=== PATIENT | female | born 1940 | race Caucasian/White ===

== ENCOUNTER 2024-09-27 07:55 | Outpatient (RCR) | payer MEDICARE, BC, SELFPAY ==
[2024-09-27 08:55] LABS: Basophils # (Auto) 0.1 Thou/mm3 (0.0-0.2); Basophils % (Auto) 3 % (0-2.5); Eosinophils # (Auto) 0.2 Thou/mm3 (0.0-0.5); Eosinophils % (Auto) 7 % (0-10); Hemoglobin 9.6 g/dL (12.0-16.0); Immature Granulocytes % (Auto) 0 % (0-0); Immature Granulocytes Auto 0.01 Thou/mm3 (0.00-0.00); Lymphocytes # (Auto) 0.5 Thou/mm3 (1.0-4.8); Lymphocytes % (Auto) 16 % (10-50); Mean Corpuscular Hemoglobin 25.3 pg (25.0-35.0); Mean Corpuscular Volume 82 fL (80-100); Monocytes # (Auto) 0.3 Thou/mm3 (0.0-0.8); Monocytes % (Auto) 9 % (0-12); Neutrophils # (Auto) 1.9 Thou/mm3 (1.8-7.7); Neutrophils % (Auto) 65 % (37-80); Nucleated Red Blood Cell % 0 /100 WBC (0); Platelet Count 208 Thou/mm3 (140-440); Red Blood Count 3.79 Miln/mm3 (4.00-5.20)
[2024-09-27 09:14] LABS: Alanine Aminotransferase 10 U/L (10-49); Albumin, Serum 4.4 gm/dL (3.4-4.8); Albumin/Globulin Ratio 1.9 (1.2-2.2); Alkaline Phosphatase 68 U/L (46-116); Anion Gap 6 (7-16); Aspartate Amino Transferase 22 U/L (0-34); BUN/Creatinine Ratio 20 Ratio (12-20); Bilirubin,Total 0.6 mg/dL (0.3-1.2); Blood Urea Nitrogen 14 mg/dL (9-23); Calcium 9.1 mg/dL (8.3-10.6); Calcium (Corrected) 9.1 mg/dL (8.5-10.1); Carbon Dioxide 25.3 mMol/L (20.0-31.0); Chloride 103 mMol/L (98-107); Creatinine (Component) 0.7 mg/dL (0.6-1.3); Globulin 2.3 gm/dL (2.3-3.5); Glucose 90 mg/dL (74-106); Osmolality,Calculated 268 (275-295); Potassium 4.3 mMol/L (3.4-5.1); Sodium 134 mMol/L (136-145); Total Protein 6.7 gm/dL (5.7-8.2); eGFR > 60 See Note
[2024-10-08 11:17] LABS: Abnormal protein band 1 0.6 g/dL (NONE DETECTED); Albumin 3.8 g/dL (3.8-4.8); Alpha-1-Globulin 0.3 g/dL (0.2-0.3); Alpha-2-Globulin 0.7 g/dL (0.5-0.9); Beta-1-Globulin 0.5 g/dL (0.4-0.6); Beta-2-globulin 0.2 g/dL (0.2-0.5); Gamma Globulin 0.9 g/dL (0.8-1.7); Immunoglobulin A 60 mg/dL (70-320); Immunoglobulin G 1064 mg/dL (600-1540); Kappa Light Chain, Free 100.1 mg/L (3.3-19.4); Lambda Light Chain, Free 14.3 mg/L (5.7-26.3)
[2024-10-11 06:49] LABS: Beta 2 Microglobulin 2.64 mg/L (< OR = 2.51); Immunoglobulin M 13 mg/dL (50-300); Protein, total, serum 6.4 g/dL (6.1-8.1)
== END 2024-10-02 23:59 | disposition home or self-care (01) ==
LOC: SCTC 07:55
PROVIDERS: PCP Family Medicine; Referring Provider Family Medicine; Visit Provider Internal Medicine Hematology & Oncology
DX: Z51.0 Encounter for antineoplastic radiation therapy (principal); Z51.11 Encounter for antineoplastic chemotherapy; C90.00 Multiple myeloma not having achieved remission; G62.9 Polyneuropathy, unspecified; G89.3 Neoplasm related pain (acute) (chronic)
CPT/HCPCS: 36415; 77300; 77301; 77336; 77338; 77385; 80053; 82232; 82784; 83521; 84155; 84165; 85025; 86334; 96372; 96401; 99212; A4216; J9041; G0463

== ENCOUNTER 2024-10-28 09:08 | Outpatient (RCR) | payer MEDICARE, BC, SELFPAY ==
[2024-10-04 09:12] LABS: Basophils # (Auto) 0.1 Thou/mm3 (0.0-0.2); Basophils % (Auto) 2 % (0-2.5); Eosinophils # (Auto) 0.1 Thou/mm3 (0.0-0.5); Eosinophils % (Auto) 2 % (0-10); Hemoglobin 9.9 g/dL (12.0-16.0); Immature Granulocytes % (Auto) 0 % (0-0); Immature Granulocytes Auto 0.02 Thou/mm3 (0.00-0.00); Lymphocytes # (Auto) 0.5 Thou/mm3 (1.0-4.8); Lymphocytes % (Auto) 12 % (10-50); Mean Corpuscular HGB Conc 30.9 g/dl (31.0-37.0); Mean Corpuscular Hemoglobin 25.3 pg (25.0-35.0); Mean Corpuscular Volume 82 fL (80-100); Monocytes # (Auto) 0.3 Thou/mm3 (0.0-0.8); Monocytes % (Auto) 7 % (0-12); Neutrophils # (Auto) 3.5 Thou/mm3 (1.8-7.7); Neutrophils % (Auto) 78 % (37-80); Nucleated Red Blood Cell % 0 /100 WBC (0); Platelet Count 247 Thou/mm3 (140-440); RDW Standard Deviation 48.1 fL (36.4-46.3); Red Blood Count 3.92 Miln/mm3 (4.00-5.20); White Blood Count 4.5 Thou/mm3 (3.6-11.0)
[2024-10-04 09:31] LABS: Alanine Aminotransferase 10 U/L (10-49); Albumin, Serum 4.4 gm/dL (3.4-4.8); Albumin/Globulin Ratio 1.6 (1.2-2.2); Alkaline Phosphatase 68 U/L (46-116); Anion Gap 5 (7-16); Aspartate Amino Transferase 24 U/L (0-34); BUN/Creatinine Ratio 19 Ratio (12-20); Bilirubin,Total 0.5 mg/dL (0.3-1.2); Blood Urea Nitrogen 13 mg/dL (9-23); Calcium 9.6 mg/dL (8.3-10.6); Calcium (Corrected) 9.6 mg/dL (8.5-10.1); Carbon Dioxide 27.3 mMol/L (20.0-31.0); Chloride 100 mMol/L (98-107); Creatinine (Component) 0.7 mg/dL (0.6-1.3); Globulin 2.7 gm/dL (2.3-3.5); Glucose 96 mg/dL (74-106); Osmolality,Calculated 264 (275-295); Potassium 4.4 mMol/L (3.4-5.1); Sodium 132 mMol/L (136-145); Total Protein 7.1 gm/dL (5.7-8.2); eGFR > 60 See Note
[2024-10-18 10:54] LABS: Basophils % (Auto) 1 % (0-2.5); Eosinophils % (Auto) 0 % (0-10); Hematocrit 31.1 % (36.0-46.0); Hemoglobin 9.5 g/dL (12.0-16.0); Immature Granulocytes % (Auto) 1 % (0-0); Immature Granulocytes Auto 0.03 Thou/mm3 (0.00-0.00); Lymphocytes # (Auto) 0.4 Thou/mm3 (1.0-4.8); Lymphocytes % (Auto) 6 % (10-50); Mean Corpuscular HGB Conc 30.5 g/dl (31.0-37.0); Mean Corpuscular Hemoglobin 24.5 pg (25.0-35.0); Mean Corpuscular Volume 80 fL (80-100); Monocytes # (Auto) 0.1 Thou/mm3 (0.0-0.8); Monocytes % (Auto) 1 % (0-12); Neutrophils # (Auto) 5.1 Thou/mm3 (1.8-7.7); Neutrophils % (Auto) 91 % (37-80); Nucleated Red Blood Cell % 0 /100 WBC (0); Platelet Count 437 Thou/mm3 (140-440); RDW Standard Deviation 46.2 fL (36.4-46.3); Red Blood Count 3.88 Miln/mm3 (4.00-5.20); White Blood Count 5.6 Thou/mm3 (3.6-11.0)
[2024-10-18 11:08] LABS: Alanine Aminotransferase 10 U/L (10-49); Albumin, Serum 4.4 gm/dL (3.4-4.8); Albumin/Globulin Ratio 1.8 (1.2-2.2); Alkaline Phosphatase 58 U/L (46-116); Anion Gap 8 (7-16); Aspartate Amino Transferase 25 U/L (0-34); BUN/Creatinine Ratio 14 Ratio (12-20); Bilirubin,Total 0.4 mg/dL (0.3-1.2); Blood Urea Nitrogen 10 mg/dL (9-23); Calcium 9.5 mg/dL (8.3-10.6); Calcium (Corrected) 9.5 mg/dL (8.5-10.1); Carbon Dioxide 25.4 mMol/L (20.0-31.0); Chloride 98 mMol/L (98-107); Creatinine (Component) 0.7 mg/dL (0.6-1.3); Globulin 2.5 gm/dL (2.3-3.5); Glucose 109 mg/dL (74-106); Osmolality,Calculated 262 (275-295); Potassium 4.1 mMol/L (3.4-5.1); Sodium 131 mMol/L (136-145); Total Protein 6.9 gm/dL (5.7-8.2); eGFR > 60 See Note
[2024-10-20 22:08] LABS: Abnormal protein band 1 0.5 g/dL (NONE DETECTED); Albumin 3.9 g/dL (3.8-4.8); Alpha-1-Globulin 0.3 g/dL (0.2-0.3); Alpha-2-Globulin 0.7 g/dL (0.5-0.9); Beta-1-Globulin 0.5 g/dL (0.4-0.6); Beta-2-globulin 0.2 g/dL (0.2-0.5); Gamma Globulin 0.9 g/dL (0.8-1.7)
[2024-10-21 06:27] LABS: Protein, total, serum 6.6 g/dL (6.1-8.1)
[2024-10-25 09:04] LABS: Basophils % (Auto) 1 % (0-2.5); Eosinophils # (Auto) 0.1 Thou/mm3 (0.0-0.5); Eosinophils % (Auto) 3 % (0-10); Hematocrit 30.5 % (36.0-46.0); Hemoglobin 9.5 g/dL (12.0-16.0); Immature Granulocytes % (Auto) 1 % (0-0); Immature Granulocytes Auto 0.02 Thou/mm3 (0.00-0.00); Lymphocytes # (Auto) 0.4 Thou/mm3 (1.0-4.8); Lymphocytes % (Auto) 10 % (10-50); Mean Corpuscular HGB Conc 31.1 g/dl (31.0-37.0); Mean Corpuscular Hemoglobin 24.8 pg (25.0-35.0); Mean Corpuscular Volume 80 fL (80-100); Monocytes # (Auto) 0.2 Thou/mm3 (0.0-0.8); Monocytes % (Auto) 5 % (0-12); Neutrophils # (Auto) 3.1 Thou/mm3 (1.8-7.7); Neutrophils % (Auto) 82 % (37-80); Nucleated Red Blood Cell % 0 /100 WBC (0); Platelet Count 261 Thou/mm3 (140-440); RDW Standard Deviation 45.4 fL (36.4-46.3); Red Blood Count 3.83 Miln/mm3 (4.00-5.20); White Blood Count 3.8 Thou/mm3 (3.6-11.0)
[2024-10-25 09:08] LABS: Alanine Aminotransferase 9 U/L (10-49); Albumin, Serum 4.3 gm/dL (3.4-4.8); Alkaline Phosphatase 50 U/L (46-116); Anion Gap 7 (7-16); Aspartate Amino Transferase 22 U/L (0-34); BUN/Creatinine Ratio 16 Ratio (12-20); Bilirubin,Total 0.4 mg/dL (0.3-1.2); Blood Urea Nitrogen 13 mg/dL (9-23); Calcium 9.2 mg/dL (8.3-10.6); Calcium (Corrected) 9.2 mg/dL (8.5-10.1); Carbon Dioxide 25.5 mMol/L (20.0-31.0); Chloride 103 mMol/L (98-107); Creatinine (Component) 0.8 mg/dL (0.6-1.3); Globulin 2.2 gm/dL (2.3-3.5); Glucose 94 mg/dL (74-106); Osmolality,Calculated 270 (275-295); Potassium 4.5 mMol/L (3.4-5.1); Sodium 135 mMol/L (136-145); Total Protein 6.5 gm/dL (5.7-8.2); eGFR > 60 See Note
[2024-11-02 03:06] LABS: Immunoglobulin G 1089 mg/dL (600-1540); Kappa Light Chain, Free 68.3 mg/L (3.3-19.4); Lambda Light Chain, Free 5.3 mg/L (5.7-26.3)
[2024-11-02 06:28] LABS: Immunoglobulin A 46 mg/dL (70-320); Immunoglobulin M 9 mg/dL (50-300); Kappa/Lambda, Free Ratio 12.89 (0.26-1.65)
== END 2024-11-02 23:59 | disposition home or self-care (01) ==
LOC: SCTC 09:08
PROVIDERS: PCP Family Medicine; Referring Provider Family Medicine; Visit Provider Internal Medicine Hematology & Oncology
DX: Z51.11 Encounter for antineoplastic chemotherapy (principal); C90.00 Multiple myeloma not having achieved remission
CPT/HCPCS: 36415; 80053; 82232; 82784; 83521; 84155; 84165; 85025; 86334; 96401; 99212; A4216; J9041; G0463

== ENCOUNTER → 2024-11-08 | Outpatient (CLI) | payer MEDICARE, BC, SELFPAY ==
[2024-11-08 14:53] LABS: Protein Total, Urine < 6 mg/dL (1-14)
[2024-11-08 14:54] LABS: Protein Total, 24 hr Urine 78 mg/24hr (<149); Protein Total, Urine Volume 1300 mL/24hr (600-1800)
== END | disposition home or self-care (01) ==
PROVIDERS: Referring Provider Internal Medicine Hematology & Oncology; Visit Provider Internal Medicine Hematology & Oncology
DX: C90.01 Multiple myeloma in remission (principal); C90.02 Multiple myeloma in relapse
CPT/HCPCS: 84156

== ENCOUNTER 2024-11-29 08:00 | Outpatient (RCR) | payer MEDICARE, BC, SELFPAY ==
[2024-11-08 10:09] LABS: Basophils % (Auto) 1 % (0-2.5); Eosinophils % (Auto) 1 % (0-10); Hematocrit 27.9 % (36.0-46.0); Immature Granulocytes % (Auto) 1 % (0-0); Immature Granulocytes Auto 0.03 Thou/mm3 (0.00-0.00); Lymphocytes # (Auto) 0.3 Thou/mm3 (1.0-4.8); Lymphocytes % (Auto) 6 % (10-50); Mean Corpuscular HGB Conc 31.2 g/dl (31.0-37.0); Mean Corpuscular Hemoglobin 24.3 pg (25.0-35.0); Mean Corpuscular Volume 78 fL (80-100); Monocytes # (Auto) 0.1 Thou/mm3 (0.0-0.8); Monocytes % (Auto) 3 % (0-12); Neutrophils # (Auto) 4.1 Thou/mm3 (1.8-7.7); Neutrophils % (Auto) 89 % (37-80); Nucleated Red Blood Cell % 0 /100 WBC (0); Platelet Count 394 Thou/mm3 (140-440); RDW Standard Deviation 45.6 fL (36.4-46.3); Red Blood Count 3.58 Miln/mm3 (4.00-5.20); White Blood Count 4.6 Thou/mm3 (3.6-11.0)
[2024-11-08 10:28] LABS: Hemoglobin 8.7 g/dL (12.0-16.0)
[2024-11-08 10:34] LABS: Alanine Aminotransferase 8 U/L (10-49); Albumin, Serum 4.3 gm/dL (3.4-4.8); Albumin/Globulin Ratio 1.8 (1.2-2.2); Alkaline Phosphatase 60 U/L (46-116); Anion Gap 7 (7-16); Aspartate Amino Transferase 25 U/L (0-34); BUN/Creatinine Ratio 16 Ratio (12-20); Bilirubin,Total 0.4 mg/dL (0.3-1.2); Blood Urea Nitrogen 13 mg/dL (9-23); Calcium 9.2 mg/dL (8.3-10.6); Calcium (Corrected) 9.2 mg/dL (8.5-10.1); Carbon Dioxide 25.4 mMol/L (20.0-31.0); Chloride 99 mMol/L (98-107); Creatinine (Component) 0.8 mg/dL (0.6-1.3); Globulin 2.4 gm/dL (2.3-3.5); Glucose 101 mg/dL (74-106); Osmolality,Calculated 262 (275-295); Potassium 4.7 mMol/L (3.4-5.1); Sodium 131 mMol/L (136-145); Total Protein 6.7 gm/dL (5.7-8.2); eGFR > 60 See Note
--- NOTE | 2024-11-10 01:25 | CTCFLWUP_ITS ---
Patient: MAIA GUZMAN : 1940 Page 6 of 7 FOLLOW UP NOTE DATE OF SERVICE: 11/09/2024 NAME: MAIA GUZMAN ACCOUNT: [id number] : 1940 AGE: 84 INTERVAL HISTORY: Patient is complaining of inability to sleep after starting on dexamethasone. Patient is taking only 1 tablet 1 and unable to sleep and feel exhausted secondary to that. She is requesting to stop that . Otherwise she is doing well and want to continue her chemotherapy ONCOLOGY HISTORY: DIAGNOSIS: Multiple myeloma in remission [ICD10] C90.01 DATE OF DIAGNOSIS: 2014 STAGE/TNM: myeloma TREATMENT HISTORY: Care?Plan Start?Date Cycle Day Intent KYPROLIS?MAINT?#2 05/24/2015 1 28 Palliative KYPROLIS?20mg/m*2?MAINT 01/21/2017 1 28 Palliative KYPROLIS?MAINT 07/23/2017 1 28 Palliative KYPROLIS?MAINT?#2 07/22/2017 1 28 Palliative KYPROLIS?MAINT 01/13/2018 1 28 Definitive DARatumumab?Weekly?douglas 02/01/2021 1 7 Palliative DARatumumab?Every?2?weeks 04/30/2021 1 14 Palliative DARatumumab?q?2?weeks 04/30/2021 1 14 Palliative DARAtumumab?q?4?weeks 09/20/2021 1 28 Palliative DARAtumumab?every?4?weeks 04/22/2023 11 28 Palliative Elotuzumab?cy?1and2?and?3+ 03/15/2024 1 28 Palliative Bortezomib?1.3?mg/m*2?SQ,?Rx?Dex?40?mg?Weekly?-?Trnsp,?Salv 09/27/2024 1 21 Palliative VCd?dose?reduced?multiple?myeloma 11/08/2024 1 21 Palliative HISTORY OF PRESENT ILLNESS: Maia Guzman is a 84-year-old female with following history. 05/16/2014: MRI without contrast showed suspicious lesions for metastatic disease. 05/17/2014: MRI showed fracture of the vertebra with bilateral lower extremity weakness. 05/20/2014: she had T1-T5 fusion, T2 corpectomy, tumor resection, laminectomy and decompression at [facility]. Frozen sections showed myeloma. 05/23/2014: Bone marrow biopsy showed 34% plasma cells. FISH testing showed multiple chromosomal abno rmalities. 06/25/2014: Patient was started on cyclophosphamide, bortezomib and Decadron. 07/15/2014: Single fraction of palliative radiation therapy was delivered to spine from T12-L5 for 800 cGy. 08/08/2014-09/01/2014 the patient received 2 more cycles of cyclophosphamide and bortezomib. Followin g that Velcade was held due to worsening neuropathy. Since then patient has been on Kyprolis as well as Revlimid. 05/24/2015: Patient was started on Kyprolis here in [place]. Her last Kyprolis was given on 2017. 01/28/2018: Patient received last dose of Zometa. May 2018: Patient continued on maintenance Revlimid. 11/09/2020: PET CT scan was done at [facility]? 12/19/2020: Whole body MRI scans done at [facility]? 12/25/2020: IgG 917, kappa light chains 48.7. 02/01/2021: Patient is started on daratumumab, Pomalyst and steroids. 05/21/2021: [place] light chain 25.9, IgG 474. 09/18/2021: [place] light chain 32.6, IgG 464, 11/20/2021: PET/CT scan? 12/19/2021: Free kappa light chain 21.2, IgG 470. 03/18/2022: Free kappa light chain 23.9, IgG 419. 06/24/2022 IgG 450. Free kappa light chain 23.3. 09/16/2022: IgG 453, free kappa light chain 20.0 12/11/2022: Ms. Guzman had radiation therapy to the left frontal bone at [facility] for a PET scan documen ailin enlarging lesion. 12/18/2022: IgG 468, free kappa light chains 26.4. Beta-2 microglobulin 1.83. Immunofixation study r evealed 1 trace concentration band migrating in the gamma region. 03/18/2023: IgG 453 (600?1540), beta-2 microglobulin 2.0. 06/18/2023: IgG 509, kappa light chains 24.5. 2 microglobulin 1.92. Abnormal protein band 0.2. 09/17/2023: IgG 555, kappa light chains 26.6. 12/17/2023: IgG 618, kappa light chains 42. 01/19/2024: IgG 779, kappa light chains 47.8. 02/13/2024: PET/CT scan was done at [facility] 02/16/2024: IgG 840, kappa light chains 50.8. Abnormal protein band 0.4 OTHER MEDICAL HISTORY/CONDITIONS: FAMILY HISTORY: ?Clone Family Hx? 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 acyclovir - 400 mg Twice a Day 2. aspirin - 81 mg 1 tab Daily 3. Decadron - 4 mg 2 tab As directed 4. gabapentin - 300 mg 3 Capsule 3 capsules three times daily 5. lisinopril - 5 mg 1 tab Daily 6. Senokot - As directed 7. traMADol - 50 mg 1 tab q6?Palabra Meds? Medications Last Reconciled by Niecy Ramos MA on 11/09/2024 ALLERGIES: Compazine REVIEW OF SYSTEMS: A complete 14-point review of systems was performed and is negative except as noted in interval histo ry. PHYSICAL EXAMINATION:?CloneBlock PE? VITAL SIGNS: Temperature?98.7, B/P?117/70, Oxygen?Saturation?96% Weight?113.4?lbs (Change?since? 5:?2.4?lbs) PAIN: 0 - No pain ECOG Performance Status: 0 - Asymptomatic and fully active Conjunctive is white Neck is supple. No adenopathy in the neck, axillary and inguinal region. Chest clear to auscultation. No wheezes or rails audible. CVS rhythm regular. Abdomen is soft. No hepatosplenomegaly palpable. Extremities no clubbing or cyanosis. She does have trace edema. LABORATORY DATA: I have personally reviewed and interpreted each of the patient?s relevant lab tests, abnormal finding s are below: Date 11/08/24 ??WHITE?BLOOD?COUNT?(Thou/mm3) 4.6 ??RED?BLOOD?COUNT?(Miln/mm3) 3.58?L ??HEMOGLOBIN?(gm/dl) 8.7?L ??HEMATOCRIT?(%) 27.9?L ??PLATELET?COUNT?(Thou/mm3) 394 ??NEUTROPHILS?%,?AUTO?(%) 89?H ??LYMPH?%,?AUTO?(%) 6?L ??NEUTROPHILS,?AUTO?(Thou/mm3) 4.1 ASSESSMENT/PLAN: stage III IgG G kappa myeloma pain increased in ribs and worsening . Recent PET/CT scan done at [facility] showed progression of her myeloma as documented above. Progressed on daratumumab and Pomalyst well. However patient was not taking Pomalyst as recommended. She decided not to take Decadron. She also decided in the past not to take Zometa. S/p radiation therapy to the left frontal bone lesion which was enlarging on the PET scan. Patient r eceived radiation therapy at [facility]. Myeloma progressed on maintenance Revlimid. Progressed on daratumumab and Pomalyst Progressing on elotuzumab, Pomalyst and Decadron PET scan in [facility] is showing progression Started on velcade and dexamethasone and cyclophosphamide was added for the last cycle Patient is tolerating Velcade and cyclophosphamide but unable to sleep secondary to dexamethasone Radiation therapy completed and gabapentin doing adequate pain control. Patient says she does not ge t pain like before and feel better now As patient have lack of sleep secondary to dexamethasone I offered Ativan Patient do not want Ativan but would like to stop dexamethasone Will continue cyclophosphamide and Velcade as tolerated Will repeat imaging Patient would like to discuss it in 4 weeks after she has spoken to Dr. Montes at [facility] ORDERS: Myeloma panel labs to be drawn prior to next visit. RETURN TO CLINIC: 4 weeks BILLING AND COMPLIANCE: I reviewed external records from providers outside my specialty as summarized above. I spent a total of 50 minutes on this patient?s care on the day of their visit excluding time spent related to any bi lled procedures. This time includes time spent with the patient as well as time spent documenting in the medical record, reviewing patients records and tests, obtaining history, placing orders, communi cating with other healthcare professionals, counseling the patient, family or caregiver, and/or care coordination for the diagnoses above. Electronically Signed by: Stu Silveira MD T: 1:23 AM CC: Bhaskar?Myles,LEX PCP: Bhaskar Bueno Referring: Bueno, Jaisimaran K This document was completed utilizing speech recognition software. Grammatical errors, random word in sertions, pronoun errors, and incomplete sentences are an occasional consequence of this system due t o software limitations, ambient noise, and hardware issues. Any formal questions or concerns about th e content, text or information contained within the body of this dictation should be directly address ed to the provider for clarification.
[2024-11-11 19:46] LABS: Abnormal protein band 1 0.4 g/dL (NONE DETECTED); Alpha-1-Globulin 0.3 g/dL (0.2-0.3); Alpha-2-Globulin 0.7 g/dL (0.5-0.9); Beta-1-Globulin 0.5 g/dL (0.4-0.6); Beta-2-globulin 0.2 g/dL (0.2-0.5); Gamma Globulin 0.8 g/dL (0.8-1.7)
[2024-11-12 06:32] LABS: Protein, total, serum 6.4 g/dL (6.1-8.1)
[2024-11-12 08:49] LABS: Kappa Light Chain, Free 48.2 mg/L (3.3-19.4); Lambda Light Chain, Free 5.2 mg/L (5.7-26.3)
[2024-11-15 06:52] LABS: Beta 2 Microglobulin 2.31 mg/L (< OR = 2.51); Kappa/Lambda, Free Ratio 9.27 (0.26-1.65)
[2024-11-15 09:18] LABS: Basophils % (Auto) 1 % (0-2.5); Eosinophils # (Auto) 0.2 Thou/mm3 (0.0-0.5); Eosinophils % (Auto) 5 % (0-10); Hematocrit 28.3 % (36.0-46.0); Immature Granulocytes % (Auto) 1 % (0-0); Immature Granulocytes Auto 0.02 Thou/mm3 (0.00-0.00); Lymphocytes # (Auto) 0.6 Thou/mm3 (1.0-4.8); Lymphocytes % (Auto) 14 % (10-50); Mean Corpuscular HGB Conc 30.7 g/dl (31.0-37.0); Mean Corpuscular Hemoglobin 24.2 pg (25.0-35.0); Mean Corpuscular Volume 79 fL (80-100); Monocytes # (Auto) 0.5 Thou/mm3 (0.0-0.8); Monocytes % (Auto) 12 % (0-12); Neutrophils % (Auto) 69 % (37-80); Nucleated Red Blood Cell % 0 /100 WBC (0); Platelet Count 328 Thou/mm3 (140-440); Red Blood Count 3.59 Miln/mm3 (4.00-5.20); White Blood Count 4.3 Thou/mm3 (3.6-11.0)
[2024-11-15 09:35] LABS: Hemoglobin 8.7 g/dL (12.0-16.0)
[2024-11-15 09:43] LABS: Alanine Aminotransferase < 7 U/L (10-49); Albumin, Serum 4.5 gm/dL (3.4-4.8); Alkaline Phosphatase 66 U/L (46-116); Anion Gap 7 (7-16); Aspartate Amino Transferase 22 U/L (0-34); BUN/Creatinine Ratio 14 Ratio (12-20); Bilirubin,Total 0.4 mg/dL (0.3-1.2); Blood Urea Nitrogen 11 mg/dL (9-23); Chloride 100 mMol/L (98-107); Creatinine (Component) 0.8 mg/dL (0.6-1.3); Globulin 2.3 gm/dL (2.3-3.5); Glucose 85 mg/dL (74-106); Osmolality,Calculated 264 (275-295); Potassium 4.4 mMol/L (3.4-5.1); Sodium 133 mMol/L (136-145); Total Protein 6.8 gm/dL (5.7-8.2); eGFR > 60 See Note
[2024-11-29 08:47] LABS: Basophils % (Auto) 0 % (0-2.5); Eosinophils # (Auto) 0.1 Thou/mm3 (0.0-0.5); Eosinophils % (Auto) 2 % (0-10); Hematocrit 30.2 % (36.0-46.0); Hemoglobin 9.3 g/dL (12.0-16.0); Immature Granulocytes % (Auto) 0 % (0-0); Immature Granulocytes Auto 0.01 Thou/mm3 (0.00-0.00); Lymphocytes # (Auto) 0.3 Thou/mm3 (1.0-4.8); Lymphocytes % (Auto) 7 % (10-50); Mean Corpuscular HGB Conc 30.8 g/dl (31.0-37.0); Mean Corpuscular Hemoglobin 24.2 pg (25.0-35.0); Mean Corpuscular Volume 78 fL (80-100); Monocytes # (Auto) 0.1 Thou/mm3 (0.0-0.8); Monocytes % (Auto) 3 % (0-12); Neutrophils # (Auto) 4.3 Thou/mm3 (1.8-7.7); Neutrophils % (Auto) 88 % (37-80); Nucleated Red Blood Cell % 0 /100 WBC (0); Platelet Count 353 Thou/mm3 (140-440); RDW Standard Deviation 45.4 fL (36.4-46.3); Red Blood Count 3.85 Miln/mm3 (4.00-5.20); White Blood Count 4.9 Thou/mm3 (3.6-11.0)
[2024-11-29 09:04] LABS: Alanine Aminotransferase 17 U/L (10-49); Albumin, Serum 4.7 gm/dL (3.4-4.8); Alkaline Phosphatase 83 U/L (46-116); Anion Gap 8 (7-16); Aspartate Amino Transferase 26 U/L (0-34); BUN/Creatinine Ratio 18 Ratio (12-20); Bilirubin,Total 0.7 mg/dL (0.3-1.2); Blood Urea Nitrogen 14 mg/dL (9-23); Calcium 9.5 mg/dL (8.3-10.6); Calcium (Corrected) 9.5 mg/dL (8.5-10.1); Chloride 96 mMol/L (98-107); Creatinine (Component) 0.8 mg/dL (0.6-1.3); Globulin 2.3 gm/dL (2.3-3.5); Glucose 98 mg/dL (74-106); Osmolality,Calculated 261 (275-295); Potassium 4.7 mMol/L (3.4-5.1); Sodium 130 mMol/L (136-145); eGFR > 60 See Note
== END 2024-12-03 23:59 | disposition home or self-care (01) ==
LOC: SCTC 08:00
PROVIDERS: PCP Family Medicine; Referring Provider Family Medicine; Visit Provider Internal Medicine Hematology & Oncology
DX: Z51.11 Encounter for antineoplastic chemotherapy (principal); C90.00 Multiple myeloma not having achieved remission; Z92.3 Personal history of irradiation
CPT/HCPCS: 80053; 82232; 83521; 84155; 84165; 85025; 86334; 96367; 96401; 96413; 99212; A4216; J1453; J2405; J7040; J7050; J9041; J9075; G0463

== ENCOUNTER 2024-12-29 08:54 | Outpatient (RCR) | payer MEDICARE, BC, SELFPAY ==
[2024-12-06 09:50] LABS: Basophils % (Auto) 1 % (0-2.5); Eosinophils # (Auto) 0.1 Thou/mm3 (0.0-0.5); Eosinophils % (Auto) 3 % (0-10); Hematocrit 29.3 % (36.0-46.0); Immature Granulocytes % (Auto) 1 % (0-0); Immature Granulocytes Auto 0.02 Thou/mm3 (0.00-0.00); Lymphocytes # (Auto) 0.9 Thou/mm3 (1.0-4.8); Lymphocytes % (Auto) 22 % (10-50); Mean Corpuscular HGB Conc 30.7 g/dl (31.0-37.0); Mean Corpuscular Hemoglobin 24.3 pg (25.0-35.0); Mean Corpuscular Volume 79 fL (80-100); Monocytes # (Auto) 0.5 Thou/mm3 (0.0-0.8); Monocytes % (Auto) 11 % (0-12); Neutrophils # (Auto) 2.7 Thou/mm3 (1.8-7.7); Neutrophils % (Auto) 64 % (37-80); Nucleated Red Blood Cell % 0 /100 WBC (0); Platelet Count 308 Thou/mm3 (140-440); RDW Standard Deviation 46.3 fL (36.4-46.3); White Blood Count 4.3 Thou/mm3 (3.6-11.0)
[2024-12-06 10:08] LABS: Alanine Aminotransferase 10 U/L (10-49); Albumin, Serum 4.5 gm/dL (3.4-4.8); Albumin/Globulin Ratio 1.9 (1.2-2.2); Alkaline Phosphatase 65 U/L (46-116); Anion Gap 7 (7-16); Aspartate Amino Transferase 25 U/L (0-34); BUN/Creatinine Ratio 20 Ratio (12-20); Bilirubin,Total 0.5 mg/dL (0.3-1.2); Blood Urea Nitrogen 14 mg/dL (9-23); Calcium 9.4 mg/dL (8.3-10.6); Calcium (Corrected) 9.4 mg/dL (8.5-10.1); Carbon Dioxide 27.5 mMol/L (20.0-31.0); Chloride 101 mMol/L (98-107); Creatinine (Component) 0.7 mg/dL (0.6-1.3); Globulin 2.4 gm/dL (2.3-3.5); Glucose 83 mg/dL (74-106); Osmolality,Calculated 269 (275-295); Potassium 4.6 mMol/L (3.4-5.1); Sodium 135 mMol/L (136-145); Total Protein 6.9 gm/dL (5.7-8.2); eGFR > 60 See Note
--- NOTE | 2024-12-08 12:48 | CTCFLWUP_ITS ---
Patient: MAIA GUZMAN : 1940 Page 2 of 2 FOLLOW UP NOTE DATE OF SERVICE: 12/08/2024 NAME: MAIA GUZMAN ACCOUNT: [id number] : 1940 AGE: 84 INTERVAL HISTORY: Patient is seen by telephone appointment at her request. Patient says that she is tolerating treatment since decreasing the dose. She is scheduled for PET CT scan in [place] and she would like to get it at [place] as her PET scans can be compared to the older ones. Patient denies any nausea or vomiting. ONCOLOGY HISTORY: DIAGNOSIS: Multiple myeloma in remission [ICD10] C90.01 DATE OF DIAGNOSIS: 2014 STAGE/TNM: myeloma TREATMENT HISTORY: Care?Plan Start?Date Cycle Day Intent KYPROLIS?MAINT?#2 05/24/2015 1 28 Palliative KYPROLIS?20mg/m*2?MAINT 01/21/2017 1 28 Palliative KYPROLIS?MAINT 07/23/2017 1 28 Palliative KYPROLIS?MAINT?#2 07/22/2017 1 28 Palliative KYPROLIS?MAINT 01/13/2018 1 28 Definitive DARatumumab?Weekly?douglas 02/01/2021 1 7 Palliative DARatumumab?Every?2?weeks 04/30/2021 1 14 Palliative DARatumumab?q?2?weeks 04/30/2021 1 14 Palliative DARAtumumab?q?4?weeks 09/20/2021 1 28 Palliative DARAtumumab?every?4?weeks 04/22/2023 11 28 Palliative Elotuzumab?cy?1and2?and?3+ 03/15/2024 1 28 Palliative Bortezomib?1.3?mg/m*2?SQ,?Rx?Dex?40?mg?Weekly?-?Trnsp,?Salv 09/27/2024 1 21 Palliative VCd?dose?reduced?multiple?myeloma 11/08/2024 1 21 Palliative HISTORY OF PRESENT ILLNESS: Maia Guzman is a 84-year-old female with following history. 05/16/2014: MRI without contrast showed suspicious lesions for metastatic disease. 05/17/2014: MRI showed fracture of the vertebra with bilateral lower extremity weakness. 05/20/2014: she had T1-T5 fusion, T2 corpectomy, tumor resection, laminectomy and decompression at [place]. Frozen sections showed myeloma. 05/23/2014: Bone marrow biopsy showed 34% plasma cells. FISH testing showed multiple chromosomal abnormalities. 06/25/2014: Patient was started on cyclophosphamide, bortezomib and Decadron. 07/15/2014: Single fraction of palliative radiation therapy was delivered to spine from T12-L5 for 800 cGy. 08/08/2014-09/01/2014 the patient received 2 more cycles of cyclophosphamide and bortezomib. Following that Velcade was held due to worsening neuropathy. Since then patient has been on Kyprolis as well as Revlimid. 05/24/2015: Patient was started on Kyprolis here in [place]. Her last Kyprolis was given on 04/29/2018. 01/28/2018: Patient received last dose of Zometa. May 2018: Patient continued on maintenance Revlimid. 11/09/2020: PET CT scan was done at [place]? 12/19/2020: Whole body MRI scans done at [place]? 12/25/2020: IgG 917, kappa light chains 48.7. 02/01/2021: Patient is started on daratumumab, Pomalyst and steroids. 05/21/2021: [place] light chain 25.9, IgG 474. 09/18/2021: [place] light chain 32.6, IgG 464, 11/20/2021: PET/CT scan? 12/19/2021: Free kappa light chain 21.2, IgG 470. 03/18/2022: Free kappa light chain 23.9, IgG 419. 06/24/2022 IgG 450. Free kappa light chain 23.3. 09/16/2022: IgG 453, free kappa light chain 20.0 12/11/2022: Ms. Guzman had radiation therapy to the left frontal bone at [place] for a PET scan documented enlarging lesion. 12/18/2022: IgG 468, free kappa light chains 26.4. Beta-2 microglobulin 1.83. Immunofixation study revealed 1 trace concentration band migrating in the gamma region. 03/18/2023: IgG 453 (600?1540), beta-2 microglobulin 2.0. 06/18/2023: IgG 509, kappa light chains 24.5. 2 microglobulin 1.92. Abnormal protein band 0.2. 09/17/2023: IgG 555, kappa light chains 26.6. 12/17/2023: IgG 618, kappa light chains 42. 01/19/2024: IgG 779, kappa light chains 47.8. 02/13/2024: PET/CT scan was done at [place] 02/16/2024: IgG 840, kappa light chains 50.8. 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 acyclovir - 400 mg Twice a Day 2. aspirin - 81 mg 1 tab Daily 3. Decadron - 4 mg 2 tab As directed 4. gabapentin - 300 mg 3 Capsule 3 capsules three times daily 5. lisinopril - 5 mg 1 tab Daily 6. Senokot - As directed 7. traMADol - 50 mg 1 tab q6 Medications Last Reconciled by Niecy Ramos MA on 12/08/2024 ALLERGIES: Compazine REVIEW OF SYSTEMS: A complete 14-point review of systems was performed and is negative except as noted in interval history. PHYSICAL EXAMINATION: VITAL SIGNS: PAIN: 0 - No pain ECOG Performance Status: 1 - Symptomatic; ambulatory; restricted in strenuous activity LABORATORY DATA: I have personally reviewed and interpreted each of the patient?s relevant lab tests, abnormal findings are below: Date 12/06/24 ??WHITE?BLOOD?COUNT?(Thou/mm3) 4.3 ??RED?BLOOD?COUNT?(Miln/mm3) 3.70?L ??HEMOGLOBIN?(gm/dl) 9.0?L ??HEMATOCRIT?(%) 29.3?L ??PLATELET?COUNT?(Thou/mm3) 308 ??NEUTROPHILS?%,?AUTO?(%) 64 ??LYMPH?%,?AUTO?(%) 22 ??NEUTROPHILS,?AUTO?(Thou/mm3) 2.7 ASSESSMENT/PLAN: stage III IgG G kappa myeloma Pain is better controlled now. She says she have no new pain. Her chronic pain in the back is the only 1 and is well-controlled. Patient's kappa lambda chain have been decreasing Patient's M protein has also decreased Last PET/CT scan done at [place] showed progression of her myeloma as documented above. Patient at that time was changed therapy and since then has been doing well. S/p radiation therapy to the left frontal bone lesion which was enlarging on the PET scan. Patient received radiation therapy at [place]. Patient has progressed on Revlimid daratumumab Pomalyst elotuzumab patient is tolerating cyclophosphamide and Velcade and Decadron She likes to get only IV Decadron and not tablets Will continue the current therapy at half dose of cyclophosphamide Will follow on the PET CT scan Anemia Will do nutritional workup to rule out any nutritional causes of anemia CBC CMP serum amino pheresis SPEP iron studies B12 folic acid RETURN TO CLINIC: 6 to [address] scan results BILLING AND COMPLIANCE: I reviewed external records from providers outside my specialty as summarized above. I spent a total of 50 minutes on this patient?s care on the day of their visit excluding time spent related to any billed procedures. This time includes time spent with the patient as well as time spent documenting in the medical record, reviewing patients records and tests, obtaining history, placing orders, communicating with other healthcare professionals, counseling the patient, family or caregiver, and/or care coordination for the diagnoses above. Electronically Signed by: Stu Silveira MD T: 12:45 PM CC: Bhaskar?Myles,? PCP: Bhaskar Bueno Referring: Stu Silveira This document was completed utilizing speech recognition software. Grammatical errors, random word insertions, pronoun errors, and incomplete sentences are an occasional consequence of this system due to software limitations, ambient noise, and hardware issues. Any formal questions or concerns about the content, text or information contained within the body of this dictation should be directly addressed to the provider for clarification.
[2024-12-10 03:04] LABS: Abnormal protein band 1 0.4 g/dL (NONE DETECTED); Alpha-1-Globulin 0.3 g/dL (0.2-0.3); Alpha-2-Globulin 0.7 g/dL (0.5-0.9); Beta-1-Globulin 0.4 g/dL (0.4-0.6); Beta-2-globulin 0.2 g/dL (0.2-0.5); Gamma Globulin 0.7 g/dL (0.8-1.7)
[2024-12-10 06:46] LABS: Protein, total, serum 6.4 g/dL (6.1-8.1)
[2024-12-13 08:54] LABS: Basophils % (Auto) 1 % (0-2.5); Eosinophils # (Auto) 0.1 Thou/mm3 (0.0-0.5); Eosinophils % (Auto) 3 % (0-10); Hematocrit 28.6 % (36.0-46.0); Hemoglobin 8.9 g/dL (12.0-16.0); Immature Granulocytes % (Auto) 1 % (0-0); Immature Granulocytes Auto 0.03 Thou/mm3 (0.00-0.00); Lymphocytes # (Auto) 0.7 Thou/mm3 (1.0-4.8); Lymphocytes % (Auto) 18 % (10-50); Mean Corpuscular HGB Conc 31.1 g/dl (31.0-37.0); Mean Corpuscular Hemoglobin 24.3 pg (25.0-35.0); Mean Corpuscular Volume 78 fL (80-100); Monocytes # (Auto) 0.4 Thou/mm3 (0.0-0.8); Monocytes % (Auto) 10 % (0-12); Neutrophils # (Auto) 2.6 Thou/mm3 (1.8-7.7); Neutrophils % (Auto) 67 % (37-80); Nucleated Red Blood Cell % 0 /100 WBC (0); Platelet Count 234 Thou/mm3 (140-440); RDW Standard Deviation 45.6 fL (36.4-46.3); Red Blood Count 3.67 Miln/mm3 (4.00-5.20); White Blood Count 3.9 Thou/mm3 (3.6-11.0)
[2024-12-13 09:11] LABS: Alanine Aminotransferase 10 U/L (10-49); Albumin, Serum 4.3 gm/dL (3.4-4.8); Alkaline Phosphatase 71 U/L (46-116); Anion Gap 5 (7-16); Aspartate Amino Transferase 17 U/L (0-34); BUN/Creatinine Ratio 16 Ratio (12-20); Bilirubin,Total 0.5 mg/dL (0.3-1.2); Blood Urea Nitrogen 11 mg/dL (9-23); Calcium 8.6 mg/dL (8.3-10.6); Calcium (Corrected) 8.6 mg/dL (8.5-10.1); Carbon Dioxide 24.9 mMol/L (20.0-31.0); Chloride 102 mMol/L (98-107); Creatinine (Component) 0.7 mg/dL (0.6-1.3); Globulin 2.2 gm/dL (2.3-3.5); Glucose 83 mg/dL (74-106); Osmolality,Calculated 262 (275-295); Potassium 4.6 mMol/L (3.4-5.1); Sodium 132 mMol/L (136-145); Total Protein 6.5 gm/dL (5.7-8.2); eGFR > 60 See Note
[2024-12-13 09:25] LABS: Ferritin 9 ng/mL (7.3-270.7); Iron 26 mcg/dL (50-170); Percent Iron Saturation 6 % (20-55); Total Iron Binding Capacity 390 mcg/dL (250-425); Unsaturated Iron Binding 364 (225-295)
[2024-12-13 09:27] LABS: Folate 18.01 ng/mL (>5.38); Vitamin B12 323 pg/mL (211-911)
[2024-12-15 13:50] LABS: Immunoglobulin G 905 mg/dL (600-1540); Kappa Light Chain, Free 44.2 mg/L (3.3-19.4); Lambda Light Chain, Free 5.6 mg/L (5.7-26.3)
[2024-12-16 06:23] LABS: Beta 2 Microglobulin 2.14 mg/L (< OR = 2.51); Immunoglobulin A 34 mg/dL (70-320); Immunoglobulin M 7 mg/dL (50-300); Kappa/Lambda, Free Ratio 7.89 (0.26-1.65)
[2024-12-22 08:57] LABS: Basophils % (Auto) 1 % (0-2.5); Eosinophils # (Auto) 0.1 Thou/mm3 (0.0-0.5); Eosinophils % (Auto) 3 % (0-10); Hematocrit 27.4 % (36.0-46.0); Immature Granulocytes % (Auto) 0 % (0-0); Immature Granulocytes Auto 0.01 Thou/mm3 (0.00-0.00); Lymphocytes # (Auto) 0.7 Thou/mm3 (1.0-4.8); Lymphocytes % (Auto) 14 % (10-50); Mean Corpuscular HGB Conc 31.4 g/dl (31.0-37.0); Mean Corpuscular Hemoglobin 24.4 pg (25.0-35.0); Mean Corpuscular Volume 78 fL (80-100); Monocytes # (Auto) 0.5 Thou/mm3 (0.0-0.8); Monocytes % (Auto) 10 % (0-12); Neutrophils # (Auto) 3.5 Thou/mm3 (1.8-7.7); Neutrophils % (Auto) 72 % (37-80); Nucleated Red Blood Cell % 0 /100 WBC (0); Platelet Count 273 Thou/mm3 (140-440); RDW Standard Deviation 48.2 fL (36.4-46.3); Red Blood Count 3.53 Miln/mm3 (4.00-5.20); White Blood Count 4.9 Thou/mm3 (3.6-11.0)
[2024-12-22 09:14] LABS: Hemoglobin 8.6 g/dL (12.0-16.0)
[2024-12-22 09:18] LABS: Alanine Aminotransferase 11 U/L (10-49); Albumin, Serum 4.3 gm/dL (3.4-4.8); Albumin/Globulin Ratio 1.9 (1.2-2.2); Alkaline Phosphatase 60 U/L (46-116); Anion Gap 8 (7-16); Aspartate Amino Transferase 27 U/L (0-34); BUN/Creatinine Ratio 19 Ratio (12-20); Bilirubin,Total 0.4 mg/dL (0.3-1.2); Blood Urea Nitrogen 13 mg/dL (9-23); Calcium 9.5 mg/dL (8.3-10.6); Calcium (Corrected) 9.5 mg/dL (8.5-10.1); Carbon Dioxide 27.3 mMol/L (20.0-31.0); Chloride 100 mMol/L (98-107); Creatinine (Component) 0.7 mg/dL (0.6-1.3); Globulin 2.3 gm/dL (2.3-3.5); Glucose 92 mg/dL (74-106); Osmolality,Calculated 270 (275-295); Potassium 4.6 mMol/L (3.4-5.1); Sodium 135 mMol/L (136-145); Total Protein 6.6 gm/dL (5.7-8.2); eGFR > 60 See Note
[2024-12-29 09:50] LABS: Basophils % (Auto) 0 % (0-2.5); Eosinophils # (Auto) 0.1 Thou/mm3 (0.0-0.5); Eosinophils % (Auto) 2 % (0-10); Hematocrit 28.7 % (36.0-46.0); Immature Granulocytes % (Auto) 0 % (0-0); Immature Granulocytes Auto 0.01 Thou/mm3 (0.00-0.00); Lymphocytes # (Auto) 0.7 Thou/mm3 (1.0-4.8); Lymphocytes % (Auto) 14 % (10-50); Mean Corpuscular HGB Conc 30.7 g/dl (31.0-37.0); Mean Corpuscular Hemoglobin 24.1 pg (25.0-35.0); Mean Corpuscular Volume 79 fL (80-100); Monocytes # (Auto) 0.4 Thou/mm3 (0.0-0.8); Monocytes % (Auto) 8 % (0-12); Neutrophils # (Auto) 3.8 Thou/mm3 (1.8-7.7); Neutrophils % (Auto) 75 % (37-80); Nucleated Red Blood Cell % 0 /100 WBC (0); Platelet Count 286 Thou/mm3 (140-440); RDW Standard Deviation 49.7 fL (36.4-46.3); Red Blood Count 3.65 Miln/mm3 (4.00-5.20); White Blood Count 5.1 Thou/mm3 (3.6-11.0)
[2024-12-29 09:52] LABS: Hemoglobin 8.8 g/dL (12.0-16.0)
[2024-12-29 10:10] LABS: Alanine Aminotransferase 11 U/L (10-49); Albumin, Serum 4.3 gm/dL (3.4-4.8); Alkaline Phosphatase 56 U/L (46-116); Anion Gap 7 (7-16); Aspartate Amino Transferase 24 U/L (0-34); BUN/Creatinine Ratio 21 Ratio (12-20); Bilirubin,Total 0.4 mg/dL (0.3-1.2); Blood Urea Nitrogen 15 mg/dL (9-23); Carbon Dioxide 25.2 mMol/L (20.0-31.0); Chloride 101 mMol/L (98-107); Creatinine (Component) 0.7 mg/dL (0.6-1.3); Globulin 2.1 gm/dL (2.3-3.5); Glucose 86 mg/dL (74-106); Osmolality,Calculated 266 (275-295); Potassium 4.7 mMol/L (3.4-5.1); Sodium 133 mMol/L (136-145); Total Protein 6.4 gm/dL (5.7-8.2); eGFR > 60 See Note
== END 2024-12-31 23:59 | disposition home or self-care (01) ==
LOC: SCTC 08:54
PROVIDERS: PCP Internal Medicine; Referring Provider Internal Medicine Hematology & Oncology; Visit Provider Internal Medicine Hematology & Oncology
DX: Z51.11 Encounter for antineoplastic chemotherapy (principal); C90.00 Multiple myeloma not having achieved remission; Z92.3 Personal history of irradiation; D64.9 Anemia, unspecified
CPT/HCPCS: 80053; 82232; 82607; 82728; 82746; 82784; 83521; 83540; 83550; 84155; 84165; 85025; 86334; 96367; 96401; 96413; 99212; A4216; J1100; J1453; J2405; J3489; J7040; J7050; J9041; J9075; G0463

== ENCOUNTER 2025-01-26 08:54 | Outpatient (RCR) | payer MEDICARE, BC, SELFPAY ==
--- NOTE | 2025-01-04 10:49 | CTCFLWUP_ITS ---
[facility] [address] [place], [place] [address] FOLLOW-UP NOTE Date: 01/04/2025 MR#: [id number] Name: MAIA GUZMAN : 1940 Dx: C90.01 Multiple myeloma in remission Identification. Patient has stage III IgG kappa multiple myeloma Prior radiation to left frontal skull and TL spine at [facility]. Pain has improved significantly. .Rarely uses tramadol 50 mg every 6 as needed for pain More frequently uses gabapentin to control neuropathic symptoms which is a noncontrolled med. A. Stage III IgG kappa multiple myeloma 1. Currently receiving adjusted cyclophosphamide Velcade Decadron. Under Dr. Silveira's direction. Follow-up with her next month. 2. Seeing [facility] regularly via telehealth and has PET scan to be done at [facility] pending. 3. Pain no longer a significant issue. I will see patient again in 6 months. Electronically signed by: Aaron Cabrera M.D. 01/04/2025 10:47 AM
[2025-01-05 09:25] LABS: Basophils % (Auto) 0 % (0-2.5); Eosinophils # (Auto) 0.1 Thou/mm3 (0.0-0.5); Eosinophils % (Auto) 2 % (0-10); Hematocrit 28.4 % (36.0-46.0); Immature Granulocytes % (Auto) 0 % (0-0); Immature Granulocytes Auto 0.01 Thou/mm3 (0.00-0.00); Lymphocytes # (Auto) 0.7 Thou/mm3 (1.0-4.8); Lymphocytes % (Auto) 13 % (10-50); Mean Corpuscular HGB Conc 30.6 g/dl (31.0-37.0); Mean Corpuscular Volume 79 fL (80-100); Monocytes # (Auto) 0.4 Thou/mm3 (0.0-0.8); Monocytes % (Auto) 8 % (0-12); Neutrophils # (Auto) 3.8 Thou/mm3 (1.8-7.7); Neutrophils % (Auto) 77 % (37-80); Nucleated Red Blood Cell % 0 /100 WBC (0); Platelet Count 266 Thou/mm3 (140-440); RDW Standard Deviation 49.1 fL (36.4-46.3); Red Blood Count 3.62 Miln/mm3 (4.00-5.20)
[2025-01-05 09:49] LABS: Hemoglobin 8.7 g/dL (12.0-16.0)
[2025-01-05 10:04] LABS: Alanine Aminotransferase 8 U/L (10-49); Albumin, Serum 4.3 gm/dL (3.4-4.8); Albumin/Globulin Ratio 2.2 (1.2-2.2); Alkaline Phosphatase 56 U/L (46-116); Anion Gap 5 (7-16); Aspartate Amino Transferase 21 U/L (0-34); BUN/Creatinine Ratio 17 Ratio (12-20); Bilirubin,Total 0.4 mg/dL (0.3-1.2); Blood Urea Nitrogen 12 mg/dL (9-23); Calcium 8.9 mg/dL (8.3-10.6); Calcium (Corrected) 8.9 mg/dL (8.5-10.1); Carbon Dioxide 27.2 mMol/L (20.0-31.0); Chloride 101 mMol/L (98-107); Creatinine (Component) 0.7 mg/dL (0.6-1.3); Glucose 96 mg/dL (74-106); Osmolality,Calculated 266 (275-295); Potassium 4.9 mMol/L (3.4-5.1); Sodium 133 mMol/L (136-145); Total Protein 6.3 gm/dL (5.7-8.2); eGFR > 60 See Note
[2025-01-11 11:21] LABS: Immunoglobulin G 731 mg/dL (600-1540); Kappa Light Chain, Free 28.5 mg/L (3.3-19.4)
[2025-01-11 22:06] LABS: Abnormal protein band 1 0.3 g/dL (NONE DETECTED); Alpha-1-Globulin 0.3 g/dL (0.2-0.3); Alpha-2-Globulin 0.7 g/dL (0.5-0.9); Beta-1-Globulin 0.5 g/dL (0.4-0.6); Beta-2-globulin 0.2 g/dL (0.2-0.5); Gamma Globulin 0.6 g/dL (0.8-1.7)
[2025-01-12 06:44] LABS: Beta 2 Microglobulin 1.92 mg/L (< OR = 2.51); Immunoglobulin A 28 mg/dL (70-320); Immunoglobulin M 7 mg/dL (50-300); Kappa/Lambda, Free Ratio 7.12 (0.26-1.65); Protein, total, serum 6.2 g/dL (6.1-8.1)
[2025-01-12 10:45] LABS: Alanine Aminotransferase 11 U/L (10-49); Albumin, Serum 4.3 gm/dL (3.4-4.8); Albumin/Globulin Ratio 2.2 (1.2-2.2); Alkaline Phosphatase 59 U/L (46-116); Anion Gap 7 (7-16); Aspartate Amino Transferase 23 U/L (0-34); BUN/Creatinine Ratio 20 Ratio (12-20); Bilirubin,Total 0.4 mg/dL (0.3-1.2); Blood Urea Nitrogen 18 mg/dL (9-23); Calcium 9.1 mg/dL (8.3-10.6); Calcium (Corrected) 9.1 mg/dL (8.5-10.1); Carbon Dioxide 26.2 mMol/L (20.0-31.0); Chloride 99 mMol/L (98-107); Creatinine (Component) 0.9 mg/dL (0.6-1.3); Glucose 87 mg/dL (74-106); Osmolality,Calculated 265 (275-295); Potassium 4.6 mMol/L (3.4-5.1); Sodium 132 mMol/L (136-145); Total Protein 6.3 gm/dL (5.7-8.2); eGFR > 60 See Note
[2025-01-12 11:17] LABS: Basophils % (Auto) 1 % (0-2.5); Eosinophils # (Auto) 0.1 Thou/mm3 (0.0-0.5); Eosinophils % (Auto) 2 % (0-10); Hematocrit 27.8 % (36.0-46.0); Immature Granulocytes % (Auto) 0 % (0-0); Immature Granulocytes Auto 0.01 Thou/mm3 (0.00-0.00); Lymphocytes # (Auto) 0.7 Thou/mm3 (1.0-4.8); Lymphocytes % (Auto) 13 % (10-50); Mean Corpuscular HGB Conc 30.6 g/dl (31.0-37.0); Mean Corpuscular Hemoglobin 24.5 pg (25.0-35.0); Mean Corpuscular Volume 80 fL (80-100); Monocytes # (Auto) 0.5 Thou/mm3 (0.0-0.8); Monocytes % (Auto) 9 % (0-12); Neutrophils # (Auto) 3.9 Thou/mm3 (1.8-7.7); Neutrophils % (Auto) 74 % (37-80); Nucleated Red Blood Cell % 0 /100 WBC (0); Platelet Count 273 Thou/mm3 (140-440); RDW Standard Deviation 51.4 fL (36.4-46.3); Red Blood Count 3.47 Miln/mm3 (4.00-5.20); White Blood Count 5.2 Thou/mm3 (3.6-11.0)
[2025-01-12 11:26] LABS: Hemoglobin 8.5 g/dL (12.0-16.0)
[2025-01-19 09:07] LABS: Basophils % (Auto) 1 % (0-2.5); Eosinophils # (Auto) 0.1 Thou/mm3 (0.0-0.5); Eosinophils % (Auto) 3 % (0-10); Hematocrit 26.6 % (36.0-46.0); Immature Granulocytes % (Auto) 0 % (0-0); Immature Granulocytes Auto 0.01 Thou/mm3 (0.00-0.00); Lymphocytes # (Auto) 0.7 Thou/mm3 (1.0-4.8); Lymphocytes % (Auto) 20 % (10-50); Mean Corpuscular HGB Conc 31.2 g/dl (31.0-37.0); Mean Corpuscular Hemoglobin 24.9 pg (25.0-35.0); Mean Corpuscular Volume 80 fL (80-100); Monocytes # (Auto) 0.5 Thou/mm3 (0.0-0.8); Monocytes % (Auto) 15 % (0-12); Neutrophils % (Auto) 61 % (37-80); Nucleated Red Blood Cell % 0 /100 WBC (0); Platelet Count 268 Thou/mm3 (140-440); RDW Standard Deviation 53.2 fL (36.4-46.3); Red Blood Count 3.34 Miln/mm3 (4.00-5.20); White Blood Count 3.3 Thou/mm3 (3.6-11.0)
[2025-01-19 09:30] LABS: Hemoglobin 8.3 g/dL (12.0-16.0)
[2025-01-19 10:05] LABS: Alanine Aminotransferase 13 U/L (10-49); Albumin, Serum 4.1 gm/dL (3.4-4.8); Albumin/Globulin Ratio 2.3 (1.2-2.2); Alkaline Phosphatase 65 U/L (46-116); Anion Gap 7 (7-16); Aspartate Amino Transferase 24 U/L (0-34); BUN/Creatinine Ratio 16 Ratio (12-20); Bilirubin,Total 0.4 mg/dL (0.3-1.2); Blood Urea Nitrogen 11 mg/dL (9-23); Calcium 8.4 mg/dL (8.3-10.6); Calcium (Corrected) 8.4 mg/dL (8.5-10.1); Carbon Dioxide 27.2 mMol/L (20.0-31.0); Chloride 101 mMol/L (98-107); Creatinine (Component) 0.7 mg/dL (0.6-1.3); Globulin 1.8 gm/dL (2.3-3.5); Glucose 90 mg/dL (74-106); Osmolality,Calculated 269 (275-295); Potassium 3.9 mMol/L (3.4-5.1); Sodium 135 mMol/L (136-145); Total Protein 5.9 gm/dL (5.7-8.2); eGFR > 60 See Note
[2025-01-26 09:49] LABS: Basophils % (Auto) 1 % (0-2.5); Eosinophils # (Auto) 0.2 Thou/mm3 (0.0-0.5); Eosinophils % (Auto) 4 % (0-10); Hematocrit 24.9 % (36.0-46.0); Immature Granulocytes % (Auto) 0 % (0-0); Immature Granulocytes Auto 0.02 Thou/mm3 (0.00-0.00); Lymphocytes # (Auto) 0.7 Thou/mm3 (1.0-4.8); Lymphocytes % (Auto) 14 % (10-50); Mean Corpuscular HGB Conc 31.3 g/dl (31.0-37.0); Mean Corpuscular Hemoglobin 24.5 pg (25.0-35.0); Mean Corpuscular Volume 78 fL (80-100); Monocytes # (Auto) 0.6 Thou/mm3 (0.0-0.8); Monocytes % (Auto) 12 % (0-12); Neutrophils # (Auto) 3.3 Thou/mm3 (1.8-7.7); Neutrophils % (Auto) 69 % (37-80); Nucleated Red Blood Cell % 0 /100 WBC (0); Platelet Count 267 Thou/mm3 (140-440); RDW Standard Deviation 51.9 fL (36.4-46.3); Red Blood Count 3.18 Miln/mm3 (4.00-5.20); White Blood Count 4.8 Thou/mm3 (3.6-11.0)
[2025-01-26 10:14] LABS: Alanine Aminotransferase 9 U/L (10-49); Albumin, Serum 3.9 gm/dL (3.4-4.8); Albumin/Globulin Ratio 2.2 (1.2-2.2); Alkaline Phosphatase 56 U/L (46-116); Anion Gap 3 (7-16); Aspartate Amino Transferase 23 U/L (0-34); BUN/Creatinine Ratio 16 Ratio (12-20); Bilirubin,Total 0.3 mg/dL (0.3-1.2); Blood Urea Nitrogen 11 mg/dL (9-23); Calcium 8.7 mg/dL (8.3-10.6); Calcium (Corrected) 8.8 mg/dL (8.5-10.1); Carbon Dioxide 26.5 mMol/L (20.0-31.0); Chloride 100 mMol/L (98-107); Creatinine (Component) 0.7 mg/dL (0.6-1.3); Globulin 1.8 gm/dL (2.3-3.5); Glucose 77 mg/dL (74-106); Osmolality,Calculated 257 (275-295); Potassium 4.7 mMol/L (3.4-5.1); Sodium 129 mMol/L (136-145); Total Protein 5.7 gm/dL (5.7-8.2); eGFR > 60 See Note
[2025-01-26 10:25] LABS: Hemoglobin 7.8 g/dL (12.0-16.0)
[2025-01-29 23:32] LABS: Immunoglobulin G 585 mg/dL (600-1540)
[2025-01-30 11:19] LABS: Abnormal protein band 1 0.2 g/dL (NONE DETECTED); Albumin 3.6 g/dL (3.8-4.8); Alpha-1-Globulin 0.3 g/dL (0.2-0.3); Alpha-2-Globulin 0.7 g/dL (0.5-0.9); Beta-1-Globulin 0.4 g/dL (0.4-0.6); Beta-2-globulin 0.2 g/dL (0.2-0.5); Gamma Globulin 0.5 g/dL (0.8-1.7)
[2025-01-31 07:05] LABS: Immunoglobulin A 24 mg/dL (70-320); Immunoglobulin M 5 mg/dL (50-300)
[2025-01-31 07:06] LABS: Protein, total, serum 5.6 g/dL (6.1-8.1)
== END 2025-01-31 23:59 | disposition home or self-care (01) ==
LOC: SCTC 08:54
PROVIDERS: Internal Medicine Hematology & Oncology; PCP Internal Medicine; Referring Provider Internal Medicine; Visit Provider Radiology Therapeutic Radiology
DX: Z51.11 Encounter for antineoplastic chemotherapy (principal); C90.00 Multiple myeloma not having achieved remission; Z92.3 Personal history of irradiation
CPT/HCPCS: 36430; 80053; 82232; 82784; 83521; 84155; 84165; 85025; 86334; 86850; 86900; 86901; 86923; 96367; 96401; 96413; 99212; A4216; J1100; J1453; J2405; J7040; J7050; J9041; J9075; P9016; G0463

== ENCOUNTER 2025-03-31 07:58 | Outpatient (RCR) | payer MEDICARE, BC, SELFPAY ==
[2025-03-09 10:06] LABS: Basophils % (Auto) 1 % (0-2.5); Eosinophils # (Auto) 0.2 Thou/mm3 (0.0-0.5); Eosinophils % (Auto) 4 % (0-10); Hematocrit 35.3 % (36.0-46.0); Hemoglobin 12.1 g/dL (12.0-16.0); Immature Granulocytes % (Auto) 0 % (0-0); Immature Granulocytes Auto 0.01 Thou/mm3 (0.00-0.00); Lymphocytes # (Auto) 0.6 Thou/mm3 (1.0-4.8); Lymphocytes % (Auto) 14 % (10-50); Mean Corpuscular HGB Conc 34.3 g/dl (31.0-37.0); Mean Corpuscular Hemoglobin 29.2 pg (25.0-35.0); Mean Corpuscular Volume 85 fL (80-100); Monocytes # (Auto) 0.4 Thou/mm3 (0.0-0.8); Monocytes % (Auto) 9 % (0-12); Neutrophils # (Auto) 3.3 Thou/mm3 (1.8-7.7); Neutrophils % (Auto) 72 % (37-80); Nucleated Red Blood Cell % 0 /100 WBC (0); Platelet Count 238 Thou/mm3 (140-440); RDW Standard Deviation 64.5 fL (36.4-46.3); Red Blood Count 4.15 Miln/mm3 (4.00-5.20); White Blood Count 4.5 Thou/mm3 (3.6-11.0)
[2025-03-09 10:25] LABS: Alanine Aminotransferase 15 U/L (10-49); Albumin, Serum 4.5 gm/dL (3.4-4.8); Albumin/Globulin Ratio 2.5 (1.2-2.2); Alkaline Phosphatase 54 U/L (46-116); Anion Gap 3 (7-16); Aspartate Amino Transferase 30 U/L (0-34); BUN/Creatinine Ratio 17 Ratio (12-20); Bilirubin,Total 0.5 mg/dL (0.3-1.2); Blood Urea Nitrogen 12 mg/dL (9-23); Calcium 9.3 mg/dL (8.3-10.6); Calcium (Corrected) 9.3 mg/dL (8.5-10.1); Carbon Dioxide 29.7 mMol/L (20.0-31.0); Chloride 97 mMol/L (98-107); Creatinine (Component) 0.7 mg/dL (0.6-1.3); Globulin 1.8 gm/dL (2.3-3.5); Glucose 87 mg/dL (74-106); Osmolality,Calculated 259 (275-295); Potassium 4.5 mMol/L (3.4-5.1); Sodium 130 mMol/L (136-145); Total Protein 6.3 gm/dL (5.7-8.2); eGFR > 60 See Note
[2025-03-17 08:52] LABS: Basophils % (Auto) 1 % (0-2.5); Eosinophils # (Auto) 0.2 Thou/mm3 (0.0-0.5); Eosinophils % (Auto) 4 % (0-10); Hematocrit 36.7 % (36.0-46.0); Hemoglobin 12.5 g/dL (12.0-16.0); Immature Granulocytes % (Auto) 0 % (0-0); Immature Granulocytes Auto 0.01 Thou/mm3 (0.00-0.00); Lymphocytes # (Auto) 0.6 Thou/mm3 (1.0-4.8); Lymphocytes % (Auto) 12 % (10-50); Mean Corpuscular HGB Conc 34.1 g/dl (31.0-37.0); Mean Corpuscular Hemoglobin 29.6 pg (25.0-35.0); Mean Corpuscular Volume 87 fL (80-100); Monocytes # (Auto) 0.4 Thou/mm3 (0.0-0.8); Monocytes % (Auto) 9 % (0-12); Neutrophils # (Auto) 3.8 Thou/mm3 (1.8-7.7); Neutrophils % (Auto) 75 % (37-80); Nucleated Red Blood Cell % 0 /100 WBC (0); Platelet Count 213 Thou/mm3 (140-440); RDW Standard Deviation 65.1 fL (36.4-46.3); Red Blood Count 4.23 Miln/mm3 (4.00-5.20); White Blood Count 5.1 Thou/mm3 (3.6-11.0)
[2025-03-17 09:08] LABS: Alanine Aminotransferase 12 U/L (10-49); Albumin, Serum 4.3 gm/dL (3.4-4.8); Albumin/Globulin Ratio 2.2 (1.2-2.2); Alkaline Phosphatase 54 U/L (46-116); Anion Gap 8 (7-16); Aspartate Amino Transferase 26 U/L (0-34); BUN/Creatinine Ratio 18 Ratio (12-20); Bilirubin,Total 0.5 mg/dL (0.3-1.2); Blood Urea Nitrogen 11 mg/dL (9-23); Calcium 8.7 mg/dL (8.3-10.6); Calcium (Corrected) 8.7 mg/dL (8.5-10.1); Carbon Dioxide 25.2 mMol/L (20.0-31.0); Chloride 100 mMol/L (98-107); Creatinine (Component) 0.6 mg/dL (0.6-1.3); Glucose 89 mg/dL (74-106); Osmolality,Calculated 264 (275-295); Potassium 4.2 mMol/L (3.4-5.1); Sodium 133 mMol/L (136-145); Total Protein 6.3 gm/dL (5.7-8.2); eGFR > 60 See Note
[2025-03-24 09:55] LABS: Basophils % (Auto) 1 % (0-2.5); Eosinophils # (Auto) 0.2 Thou/mm3 (0.0-0.5); Eosinophils % (Auto) 5 % (0-10); Hematocrit 34.7 % (36.0-46.0); Hemoglobin 12.1 g/dL (12.0-16.0); Immature Granulocytes % (Auto) 0 % (0-0); Immature Granulocytes Auto 0.02 Thou/mm3 (0.00-0.00); Lymphocytes # (Auto) 0.7 Thou/mm3 (1.0-4.8); Lymphocytes % (Auto) 14 % (10-50); Mean Corpuscular HGB Conc 34.9 g/dl (31.0-37.0); Mean Corpuscular Hemoglobin 29.9 pg (25.0-35.0); Mean Corpuscular Volume 86 fL (80-100); Monocytes # (Auto) 0.4 Thou/mm3 (0.0-0.8); Monocytes % (Auto) 7 % (0-12); Neutrophils # (Auto) 3.6 Thou/mm3 (1.8-7.7); Neutrophils % (Auto) 73 % (37-80); Nucleated Red Blood Cell % 0 /100 WBC (0); Platelet Count 214 Thou/mm3 (140-440); RDW Standard Deviation 63.1 fL (36.4-46.3); Red Blood Count 4.05 Miln/mm3 (4.00-5.20); White Blood Count 4.9 Thou/mm3 (3.6-11.0)
[2025-03-24 10:05] LABS: Alanine Aminotransferase 12 U/L (10-49); Albumin, Serum 4.1 gm/dL (3.4-4.8); Albumin/Globulin Ratio 2.3 (1.2-2.2); Alkaline Phosphatase 52 U/L (46-116); Anion Gap 8 (7-16); Aspartate Amino Transferase 24 U/L (0-34); BUN/Creatinine Ratio 20 Ratio (12-20); Bilirubin,Total 0.5 mg/dL (0.3-1.2); Blood Urea Nitrogen 12 mg/dL (9-23); Calcium 8.2 mg/dL (8.3-10.6); Calcium (Corrected) 8.2 mg/dL (8.5-10.1); Chloride 98 mMol/L (98-107); Creatinine (Component) 0.6 mg/dL (0.6-1.3); Globulin 1.8 gm/dL (2.3-3.5); Glucose 88 mg/dL (74-106); Osmolality,Calculated 263 (275-295); Potassium 4.2 mMol/L (3.4-5.1); Sodium 132 mMol/L (136-145); Total Protein 5.9 gm/dL (5.7-8.2); eGFR > 60 See Note
[2025-03-30 03:03] LABS: Abnormal protein band 1 0.2 g/dL (NONE DETECTED); Alpha-1-Globulin 0.2 g/dL (0.2-0.3); Alpha-2-Globulin 0.6 g/dL (0.5-0.9); Beta-1-Globulin 0.3 g/dL (0.4-0.6); Beta-2-globulin 0.2 g/dL (0.2-0.5); Gamma Globulin 0.4 g/dL (0.8-1.7); Immunoglobulin G 541 mg/dL (600-1540); Kappa Light Chain, Free 26.6 mg/L (3.3-19.4); Lambda Light Chain, Free 3.6 mg/L (5.7-26.3)
[2025-03-30 06:25] LABS: Protein, total, serum 5.8 g/dL (6.1-8.1)
[2025-03-30 06:26] LABS: Beta 2 Microglobulin 1.77 mg/L (< OR = 2.51); Immunoglobulin A 26 mg/dL (70-320); Immunoglobulin M 10 mg/dL (50-300); Kappa/Lambda, Free Ratio 7.39 (0.26-1.65)
[2025-03-31 08:54] LABS: Basophils % (Auto) 1 % (0-2.5); Eosinophils # (Auto) 0.2 Thou/mm3 (0.0-0.5); Eosinophils % (Auto) 4 % (0-10); Hematocrit 36.8 % (36.0-46.0); Hemoglobin 12.5 g/dL (12.0-16.0); Immature Granulocytes % (Auto) 1 % (0-0); Immature Granulocytes Auto 0.02 Thou/mm3 (0.00-0.00); Lymphocytes # (Auto) 0.6 Thou/mm3 (1.0-4.8); Lymphocytes % (Auto) 13 % (10-50); Mean Corpuscular Hemoglobin 30.6 pg (25.0-35.0); Mean Corpuscular Volume 90 fL (80-100); Monocytes # (Auto) 0.4 Thou/mm3 (0.0-0.8); Monocytes % (Auto) 9 % (0-12); Neutrophils # (Auto) 3.1 Thou/mm3 (1.8-7.7); Neutrophils % (Auto) 73 % (37-80); Nucleated Red Blood Cell % 0 /100 WBC (0); Platelet Count 238 Thou/mm3 (140-440); RDW Standard Deviation 64.8 fL (36.4-46.3); Red Blood Count 4.08 Miln/mm3 (4.00-5.20); White Blood Count 4.3 Thou/mm3 (3.6-11.0)
[2025-03-31 09:14] LABS: Alanine Aminotransferase 13 U/L (10-49); Albumin, Serum 4.1 gm/dL (3.4-4.8); Albumin/Globulin Ratio 2.6 (1.2-2.2); Alkaline Phosphatase 52 U/L (46-116); Anion Gap 7 (7-16); Aspartate Amino Transferase 25 U/L (0-34); BUN/Creatinine Ratio 20 Ratio (12-20); Bilirubin,Total 0.6 mg/dL (0.3-1.2); Blood Urea Nitrogen 14 mg/dL (9-23); Calcium 8.8 mg/dL (8.3-10.6); Calcium (Corrected) 8.8 mg/dL (8.5-10.1); Carbon Dioxide 26.7 mMol/L (20.0-31.0); Chloride 100 mMol/L (98-107); Creatinine (Component) 0.7 mg/dL (0.6-1.3); Globulin 1.6 gm/dL (2.3-3.5); Glucose 89 mg/dL (74-106); Osmolality,Calculated 267 (275-295); Potassium 4.1 mMol/L (3.4-5.1); Sodium 134 mMol/L (136-145); Total Protein 5.7 gm/dL (5.7-8.2); eGFR > 60 See Note
== END 2025-04-02 23:59 | disposition home or self-care (01) ==
LOC: SCTC 07:58
PROVIDERS: PCP Family Medicine; Referring Provider Family Medicine; Visit Provider Internal Medicine Hematology & Oncology
DX: Z51.11 Encounter for antineoplastic chemotherapy (principal); C90.00 Multiple myeloma not having achieved remission; Z92.3 Personal history of irradiation; D64.9 Anemia, unspecified
CPT/HCPCS: 80053; 82232; 82784; 83521; 84155; 84165; 85025; 86334; 96367; 96413; A4216; J1100; J1756; J7040; J7050; J9075; A9270

== ENCOUNTER 2025-04-28 08:00 | Outpatient (RCR) | payer MEDICARE, BC, SELFPAY ==
[2025-04-07 09:20] LABS: Basophils % (Auto) 0 % (0-2.5); Eosinophils # (Auto) 0.2 Thou/mm3 (0.0-0.5); Eosinophils % (Auto) 3 % (0-10); Hematocrit 35.4 % (36.0-46.0); Hemoglobin 12.5 g/dL (12.0-16.0); Immature Granulocytes % (Auto) 0 % (0-0); Immature Granulocytes Auto 0.02 Thou/mm3 (0.00-0.00); Lymphocytes # (Auto) 0.8 Thou/mm3 (1.0-4.8); Lymphocytes % (Auto) 15 % (10-50); Mean Corpuscular HGB Conc 35.3 g/dl (31.0-37.0); Mean Corpuscular Hemoglobin 30.7 pg (25.0-35.0); Mean Corpuscular Volume 87 fL (80-100); Monocytes # (Auto) 0.4 Thou/mm3 (0.0-0.8); Monocytes % (Auto) 7 % (0-12); Neutrophils # (Auto) 3.7 Thou/mm3 (1.8-7.7); Neutrophils % (Auto) 74 % (37-80); Nucleated Red Blood Cell % 0 /100 WBC (0); Platelet Count 212 Thou/mm3 (140-440); RDW Standard Deviation 61.7 fL (36.4-46.3); Red Blood Count 4.07 Miln/mm3 (4.00-5.20)
[2025-04-07 09:34] LABS: Alanine Aminotransferase 16 U/L (10-49); Albumin, Serum 4.1 gm/dL (3.4-4.8); Albumin/Globulin Ratio 2.4 (1.2-2.2); Alkaline Phosphatase 53 U/L (46-116); Anion Gap 8 (7-16); Aspartate Amino Transferase 32 U/L (0-34); BUN/Creatinine Ratio 16 Ratio (12-20); Bilirubin,Total 0.5 mg/dL (0.3-1.2); Blood Urea Nitrogen 11 mg/dL (9-23); Calcium 8.5 mg/dL (8.3-10.6); Calcium (Corrected) 8.5 mg/dL (8.5-10.1); Carbon Dioxide 27.6 mMol/L (20.0-31.0); Chloride 99 mMol/L (98-107); Creatinine (Component) 0.7 mg/dL (0.6-1.3); Globulin 1.7 gm/dL (2.3-3.5); Glucose 82 mg/dL (74-106); Osmolality,Calculated 268 (275-295); Potassium 4.7 mMol/L (3.4-5.1); Sodium 135 mMol/L (136-145); Total Protein 5.8 gm/dL (5.7-8.2); eGFR > 60 See Note
[2025-04-14 08:51] LABS: Basophils % (Auto) 1 % (0-2.5); Eosinophils # (Auto) 0.2 Thou/mm3 (0.0-0.5); Eosinophils % (Auto) 3 % (0-10); Hematocrit 38.6 % (36.0-46.0); Hemoglobin 13.2 g/dL (12.0-16.0); Immature Granulocytes % (Auto) 1 % (0-0); Immature Granulocytes Auto 0.04 Thou/mm3 (0.00-0.00); Lymphocytes # (Auto) 0.7 Thou/mm3 (1.0-4.8); Lymphocytes % (Auto) 14 % (10-50); Mean Corpuscular HGB Conc 34.2 g/dl (31.0-37.0); Mean Corpuscular Volume 91 fL (80-100); Monocytes # (Auto) 0.4 Thou/mm3 (0.0-0.8); Monocytes % (Auto) 9 % (0-12); Neutrophils # (Auto) 3.7 Thou/mm3 (1.8-7.7); Neutrophils % (Auto) 73 % (37-80); Nucleated Red Blood Cell % 0 /100 WBC (0); Platelet Count 228 Thou/mm3 (140-440); RDW Standard Deviation 61.4 fL (36.4-46.3); Red Blood Count 4.26 Miln/mm3 (4.00-5.20); White Blood Count 5.1 Thou/mm3 (3.6-11.0)
[2025-04-14 09:12] LABS: Alanine Aminotransferase 18 U/L (10-49); Albumin, Serum 4.3 gm/dL (3.4-4.8); Albumin/Globulin Ratio 2.5 (1.2-2.2); Alkaline Phosphatase 60 U/L (46-116); Anion Gap 10 (7-16); BUN/Creatinine Ratio 17 Ratio (12-20); Bilirubin,Total 0.7 mg/dL (0.3-1.2); Blood Urea Nitrogen 12 mg/dL (9-23); Calcium 8.9 mg/dL (8.3-10.6); Calcium (Corrected) 8.9 mg/dL (8.5-10.1); Carbon Dioxide 24.8 mMol/L (20.0-31.0); Chloride 95 mMol/L (98-107); Creatinine (Component) 0.7 mg/dL (0.6-1.3); Globulin 1.7 gm/dL (2.3-3.5); Glucose 83 mg/dL (74-106); Osmolality,Calculated 259 (275-295); Potassium 4.4 mMol/L (3.4-5.1); Sodium 130 mMol/L (136-145); eGFR > 60 See Note
--- NOTE | 2025-04-18 00:25 | CTCFLWUP_ITS ---
Patient: MAIA GUZMAN : 1940 Page 6 of 7 FOLLOW UP NOTE DATE OF SERVICE: 04/12/2025 NAME: MAIA GUZMAN ACCOUNT: [id number] : 1940 AGE: 84 INTERVAL HISTORY: Patient is on treatment with the VCD . patient is doing well. Pain is better and controlled with gabapentin. ONCOLOGY HISTORY:?CloneBlock Oncology Hx? DIAGNOSIS: Multiple myeloma in remission [ICD10] C90.01 DATE OF DIAGNOSIS: 2014 STAGE/TNM: myeloma TREATMENT HISTORY: Care?Plan Start?Date Cycle Day Intent KYPROLIS?MAINT?#2 05/24/2015 1 28 Palliative KYPROLIS?20mg/m*2?MAINT 01/21/2017 1 28 Palliative KYPROLIS?MAINT 07/23/2017 1 28 Palliative KYPROLIS?MAINT?#2 07/22/2017 1 28 Palliative KYPROLIS?MAINT 01/13/2018 1 28 Definitive DARatumumab?Weekly?douglas 02/01/2021 1 7 Palliative DARatumumab?Every?2?weeks 04/30/2021 1 14 Palliative DARatumumab?q?2?weeks 04/30/2021 1 14 Palliative DARAtumumab?q?4?weeks 09/20/2021 1 28 Palliative DARAtumumab?every?4?weeks 04/22/2023 11 28 Palliative Elotuzumab?cy?1and2?and?3+ 03/15/2024 1 28 Palliative Bortezomib?1.3?mg/m*2?SQ,?Rx?Dex?40?mg?Weekly?-?Trnsp,?Salv 09/27/2024 1 21 Palliative VCd?dose?reduced?multiple?myeloma 11/08/2024 1 21 Palliative VENOfer?200mg?IV?wkly?for?10?weeks 02/02/2025 1 70 Maintenance HISTORY OF PRESENT ILLNESS: Maia Guzman is a 84-year-old female with following history. 05/16/2014: MRI without contrast showed suspicious lesions for metastatic disease. 05/17/2014: MRI showed fracture of the vertebra with bilateral lower extremity weakness. 05/20/2014: she had T1-T5 fusion, T2 corpectomy, tumor resection, laminectomy and decompression at [facility]. Frozen sections showed myeloma. 05/23/2014: Bone marrow biopsy showed 34% plasma cells. FISH testing showed multiple chromosomal abnormalities. 06/25/2014: Patient was started on cyclophosphamide, bortezomib and Decadron. 07/15/2014: Single fraction of palliative radiation therapy was delivered to spine from T12-L5 for 800 cGy. 08/08/2014-09/01/2014 the patient received 2 more cycles of cyclophosphamide and bortezomib. Following that Velcade was held due to worsening neuropathy. Since then patient has been on Kyprolis as well as Revlimid. 05/24/2015: Patient was started on Kyprolis here in [place]. Her last Kyprolis was given on 04/29/2018. 01/28/2018: Patient received last dose of Zometa. May 2018: Patient continued on maintenance Revlimid. 11/09/2020: PET CT scan was done at [facility]? 12/19/2020: Whole body MRI scans done at [facility]? 12/25/2020: IgG 917, kappa light chains 48.7. 02/01/2021: Patient is started on daratumumab, Pomalyst and steroids. 05/21/2021: [place] light chain 25.9, IgG 474. 09/18/2021: [place] light chain 32.6, IgG 464, 11/20/2021: PET/CT scan? 12/19/2021: Free kappa light chain 21.2, IgG 470. 03/18/2022: Free kappa light chain 23.9, IgG 419. 06/24/2022 IgG 450. Free kappa light chain 23.3. 09/16/2022: IgG 453, free kappa light chain 20.0 12/11/2022: Ms. Guzman had radiation therapy to the left frontal bone at [facility] for a PET scan documented enlarging lesion. 12/18/2022: IgG 468, free kappa light chains 26.4. Beta-2 microglobulin 1.83. Immunofixation study revealed 1 trace concentration band migrating in the gamma region. 03/18/2023: IgG 453 (600?1540), beta-2 microglobulin 2.0. 06/18/2023: IgG 509, kappa light chains 24.5. 2 microglobulin 1.92. Abnormal protein band 0.2. 09/17/2023: IgG 555, kappa light chains 26.6. 12/17/2023: IgG 618, kappa light chains 42. 01/19/2024: IgG 779, kappa light chains 47.8. 02/13/2024: PET/CT scan was done at [facility] 02/16/2024: IgG 840, kappa light chains 50.8. Abnormal protein band 0.4 OTHER MEDICAL HISTORY/CONDITIONS: FAMILY HISTORY: ?Clone Family Hx? 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 acyclovir - 400 mg Twice a Day 2. aspirin - 81 mg 1 tab Daily 3. clindamycin phosphate - 1 % 2 gm twice daily 4. gabapentin - 300 mg 3 Capsule 3 capsules three times daily 5. lisinopril - 5 mg 1 tab Daily?Palabra Meds? Medications Last Reconciled by Niecy Ramos MA on 04/12/2025 ALLERGIES: Compazine REVIEW OF SYSTEMS: A complete 14-point review of systems was performed and is negative except as noted in interval history. PHYSICAL EXAMINATION:?CloneBlock PE? VITAL SIGNS: Temperature?99, B/P?120/70, Oxygen?Saturation?96% Weight?101?lbs (Change?since?04/07/25:?-0.6?lbs) PAIN: 0 - No pain ECOG Performance Status: 0 - Asymptomatic and fully active GENERAL APPEARANCE: Appears well, in no apparent distress, appropriately interactive. HEENT: Normocephalic, no temporal wasting, normal conjunctiva, no scleral icterus, normal hearing, lips without lesions, neck normal range of motion. CARDIOVASCULAR: Not assessed. PULMONARY: Normal respiratory effort, no respiratory distress or use of accessory muscles, speaking in full sentences, no tachypnea. EXTREMITIES: No pedal edema or cyanosis. SKIN: Normal skin appearance. NEUROLOGIC: Alert and oriented x4. PSHYCHIATRIC: Appropriate affect, mood normal, behavior normal, intact thought and speech. LABORATORY DATA: I have personally reviewed and interpreted each of the patient?s relevant lab tests, abnormal findings are below: Date 04/07/25 04/14/25 ??WHITE?BLOOD?COUNT?(Thou/mm3) 5.0 5.1 ??RED?BLOOD?COUNT?(Miln/mm3) 4.07 4.26 ??HEMOGLOBIN?(gm/dl) 12.5 13.2 ??HEMATOCRIT?(%) 35.4?L 38.6 ??PLATELET?COUNT?(Thou/mm3) 212 228 ??NEUTROPHILS?%,?AUTO?(%) 74 73 ??LYMPH?%,?AUTO?(%) 15 14 ??NEUTROPHILS,?AUTO?(Thou/mm3) 3.7 3.7 ??GLUCOSE,RANDOM?(mg/dL) 82 83 ??BLOOD?UREA?NITROGEN?(mg/dL) 11 12 ??CREATININE?(mg/dL) 0.70 0.70 ??SODIUM?(mmol/L) 135?L 130?L ??POTASSIUM?(mmol/L) 4.7 4.4 ??CHLORIDE?(mmol/L) 99 95?L ??CrCl?(CandG)?(ml/min) 44.30 44.30 ??AST/SGOT?(Unit/L) 32 ? ??ALT/SGPT?(Unit/L) 16 18 ??ALKALINE?PHOSPHATASE?(Unit/L) 53 60 ??BILIRUBIN,?TOTAL?(mg/dL) 0.5 0.7 ??PROTEIN?TOTAL?(gm/dl) 5.8 6.0 ??ALBUMIN,?SERUM?(gm/dl) 4.1 4.3 ??GLOBULIN?(gm/dl) 1.7?L 1.7?L ??ALBUMIN/GLOBULIN?RATIO 2.4?H 2.5?H ??CALCIUM,?SERUM?(mg/dL) 8.5 8.9 ??CALCIUM?SERUM?(CORRECTED)?(mg/dL) 8.5 8.9 ASSESSMENT/PLAN:?Wayne Silveira Assessment/Plan? stage III IgG G kappa myeloma Pain is better controlled now. She says she have no new pain. Her chronic pain in the back is the only 1 and is well-controlled. Patient's kappa lambda chain have been decreasing Patient's M protein has also decreased S/p radiation therapy to the left frontal bone lesion which was enlarging on the PET scan. Patient received radiation therapy at [facility]. Patient s/p radiation to rib On vcd at reduced dose Cyclo at 50 percent half dose and decadron iv only and doing well. Anemia Transfusion and iron infusion was done Hb improved ORDERS: Order # Description [id number] Comprehensive Metabolic Panel - 12 + CBC with Auto Diff RETURN TO CLINIC: 8 weeks BILLING AND COMPLIANCE: I reviewed external records from providers outside my specialty as summarized above. I spent a total of 50 minutes on this patient?s care on the day of their visit excluding time spent related to any billed procedures. This time includes time spent with the patient as well as time spent documenting in the medical record, reviewing patients records and tests, obtaining history, placing orders, communicating with other healthcare professionals, counseling the patient, family or caregiver, and/or care coordination for the diagnoses above. Electronically Signed by: Stu Silveira MD T: 12:23 AM CC: Bhaskar?Myles,? PCP: Bhaskar Bueno Referring: Bhaskar Bueno This document was completed utilizing speech recognition software. Grammatical errors, random word insertions, pronoun errors, and incomplete sentences are an occasional consequence of this system due to software limitations, ambient noise, and hardware issues. Any formal questions or concerns about the content, text or information contained within the body of this dictation should be directly addressed to the provider for clarification.
[2025-04-21 08:41] LABS: Basophils % (Auto) 1 % (0-2.5); Eosinophils # (Auto) 0.1 Thou/mm3 (0.0-0.5); Eosinophils % (Auto) 2 % (0-10); Hematocrit 36.1 % (36.0-46.0); Hemoglobin 12.7 g/dL (12.0-16.0); Immature Granulocytes % (Auto) 0 % (0-0); Immature Granulocytes Auto 0.02 Thou/mm3 (0.00-0.00); Lymphocytes # (Auto) 0.7 Thou/mm3 (1.0-4.8); Lymphocytes % (Auto) 11 % (10-50); Mean Corpuscular HGB Conc 35.2 g/dl (31.0-37.0); Mean Corpuscular Hemoglobin 32.1 pg (25.0-35.0); Mean Corpuscular Volume 91 fL (80-100); Monocytes # (Auto) 0.4 Thou/mm3 (0.0-0.8); Monocytes % (Auto) 6 % (0-12); Neutrophils # (Auto) 4.9 Thou/mm3 (1.8-7.7); Neutrophils % (Auto) 79 % (37-80); Nucleated Red Blood Cell % 0 /100 WBC (0); Platelet Count 222 Thou/mm3 (140-440); RDW Standard Deviation 59.5 fL (36.4-46.3); Red Blood Count 3.96 Miln/mm3 (4.00-5.20); White Blood Count 6.1 Thou/mm3 (3.6-11.0)
[2025-04-21 09:12] LABS: Alanine Aminotransferase 20 U/L (10-49); Albumin, Serum 4.2 gm/dL (3.4-4.8); Albumin/Globulin Ratio 2.5 (1.2-2.2); Alkaline Phosphatase 57 U/L (46-116); Anion Gap 7 (7-16); Aspartate Amino Transferase 31 U/L (0-34); BUN/Creatinine Ratio 16 Ratio (12-20); Bilirubin,Total 0.6 mg/dL (0.3-1.2); Blood Urea Nitrogen 11 mg/dL (9-23); Calcium 9.3 mg/dL (8.3-10.6); Calcium (Corrected) 9.3 mg/dL (8.5-10.1); Carbon Dioxide 27.4 mMol/L (20.0-31.0); Chloride 97 mMol/L (98-107); Creatinine (Component) 0.7 mg/dL (0.6-1.3); Globulin 1.7 gm/dL (2.3-3.5); Glucose 90 mg/dL (74-106); Osmolality,Calculated 262 (275-295); Potassium 4.2 mMol/L (3.4-5.1); Sodium 131 mMol/L (136-145); Total Protein 5.9 gm/dL (5.7-8.2); eGFR > 60 See Note
[2025-04-28 09:03] LABS: Basophils % (Auto) 1 % (0-2.5); Eosinophils # (Auto) 0.2 Thou/mm3 (0.0-0.5); Eosinophils % (Auto) 3 % (0-10); Hemoglobin 12.5 g/dL (12.0-16.0); Immature Granulocytes % (Auto) 0 % (0-0); Immature Granulocytes Auto 0.02 Thou/mm3 (0.00-0.00); Lymphocytes # (Auto) 0.6 Thou/mm3 (1.0-4.8); Lymphocytes % (Auto) 12 % (10-50); Mean Corpuscular HGB Conc 34.7 g/dl (31.0-37.0); Mean Corpuscular Hemoglobin 32.3 pg (25.0-35.0); Mean Corpuscular Volume 93 fL (80-100); Monocytes # (Auto) 0.4 Thou/mm3 (0.0-0.8); Monocytes % (Auto) 8 % (0-12); Neutrophils # (Auto) 3.9 Thou/mm3 (1.8-7.7); Neutrophils % (Auto) 76 % (37-80); Nucleated Red Blood Cell % 0 /100 WBC (0); Platelet Count 213 Thou/mm3 (140-440); RDW Standard Deviation 59.3 fL (36.4-46.3); Red Blood Count 3.87 Miln/mm3 (4.00-5.20); White Blood Count 5.1 Thou/mm3 (3.6-11.0)
[2025-04-28 09:24] LABS: Alanine Aminotransferase 19 U/L (10-49); Albumin, Serum 4.1 gm/dL (3.4-4.8); Albumin/Globulin Ratio 2.6 (1.2-2.2); Alkaline Phosphatase 49 U/L (46-116); Anion Gap 7 (7-16); Aspartate Amino Transferase 33 U/L (0-34); BUN/Creatinine Ratio 14 Ratio (12-20); Bilirubin,Total 0.4 mg/dL (0.3-1.2); Blood Urea Nitrogen 10 mg/dL (9-23); Calcium 9.1 mg/dL (8.3-10.6); Calcium (Corrected) 9.1 mg/dL (8.5-10.1); Carbon Dioxide 29.4 mMol/L (20.0-31.0); Chloride 95 mMol/L (98-107); Creatinine (Component) 0.7 mg/dL (0.6-1.3); Globulin 1.6 gm/dL (2.3-3.5); Glucose 87 mg/dL (74-106); Osmolality,Calculated 260 (275-295); Potassium 4.1 mMol/L (3.4-5.1); Sodium 131 mMol/L (136-145); Total Protein 5.7 gm/dL (5.7-8.2); eGFR > 60 See Note
[2025-04-30 23:34] LABS: Immunoglobulin G 512 mg/dL (600-1540); Kappa Light Chain, Free 20.6 mg/L (3.3-19.4); Lambda Light Chain, Free 4.1 mg/L (5.7-26.3)
[2025-05-01 03:04] LABS: Abnormal protein band 1 0.2 g/dL (NONE DETECTED); Albumin 4.1 g/dL (3.8-4.8); Alpha-1-Globulin 0.2 g/dL (0.2-0.3); Alpha-2-Globulin 0.6 g/dL (0.5-0.9); Beta-1-Globulin 0.3 g/dL (0.4-0.6); Beta-2-globulin 0.2 g/dL (0.2-0.5); Gamma Globulin 0.5 g/dL (0.8-1.7)
[2025-05-02 06:52] LABS: Immunoglobulin A 28 mg/dL (70-320); Immunoglobulin M 14 mg/dL (50-300); Kappa/Lambda, Free Ratio 5.02 (0.26-1.65)
[2025-05-02 06:55] LABS: Protein, total, serum 5.9 g/dL (6.1-8.1)
== END 2025-05-02 23:59 | disposition home or self-care (01) ==
LOC: SCTC 08:00
PROVIDERS: PCP Family Medicine; Referring Provider Family Medicine; Visit Provider Internal Medicine Hematology & Oncology
DX: Z51.11 Encounter for antineoplastic chemotherapy (principal); C90.00 Multiple myeloma not having achieved remission; D64.9 Anemia, unspecified; G89.29 Other chronic pain; M54.9 Dorsalgia, unspecified; Z92.3 Personal history of irradiation
CPT/HCPCS: 80053; 82232; 82784; 83521; 84155; 84165; 85025; 86334; 96367; 96413; 99212; A4216; J1100; J1756; J7040; J7050; J9075; G0463

== ENCOUNTER 2025-06-17 12:10 | Day surgery (SDC) | payer MEDICARE, BC, SELFPAY ==
[2025-06-16 11:59] VITALS: BMI 20.5
--- NOTE | 2025-06-17 06:00 | EKG_ITS ---
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
--- NOTE | 2025-06-17 14:30 | XR_ITS ---
Examination: AP chest single view Technique AP portable supine chest single view Date and time: June 17, 2025 1442 hours INDICATIONS: Port-A-Cath insertion FINDINGS: Left subclavian Port-A-Cath tip right atrium IMPRESSION: Left subclavian Port-A-Cath tip right atrium Examination: AP chest single view TECHNIQUE: AP portable supine chest single view Date and time: June 17, 2025, 1457 hours INDICATIONS: Port-A-Cath insertion today. FINDINGS: Left subclavian Port-A-Cath tip right atrium
[2025-06-17 15:34] VITALS: BP 127/58; PULSE 70; RESP 15; TEMP 36.3; O2SAT 97
--- NOTE | 2025-06-17 15:34 | SUR.PHASEII ---
1534: Pt. AAOx4, vitals stable, breathing unlabored, no complaint of pain or nausea, dressing to left upper chest CDI, no active bleed noted, report received from Erickson GIBBS and MD Alberto
[2025-06-17 15:39] VITALS: BP 133/59; PULSE 66; RESP 15; TEMP 36.3; O2SAT 97
[2025-06-17 15:44] VITALS: BP 131/61; PULSE 64; RESP 15; TEMP 36.4; O2SAT 97
[2025-06-17 15:49] VITALS: BP 149/70; PULSE 66; RESP 16; TEMP 36.3; O2SAT 98
--- NOTE | 2025-06-17 15:51 | XR_ITS ---
Examination: AP chest single view Technique one AP portable upright chest single view INDICATIONS: Port-A-Cath insertion today. FINDINGS: Left subclavian Port-A-Cath tip SVC satisfactory position No pneumothorax Minimal prominence left ventricle No pneumonia Subsegmental atelectasis in the right lower lung zone Severe osteopenia with partial visualization kyphoplasty T12 and L2 IMPRESSION: Left subclavian Port-A-Cath tip satisfactory position
--- NOTE | 2025-06-17 15:53 | PD.SUROPNT ---
Date of Procedure 06/17/25 Pre Op Diagnosis Stricture of vein requiring chemotherapy for multiple myeloma Post Op Diagnosis Same Procedure Insertion of a Port-A-Cath using ultrasound guidance Findings Patient was found to have a patent vein on both subclavian's on the used to left subclavian to advanced support Procedure Description After the patient was brought to the operating room he was placed in supine position. Site-Rite ultrasound was used to identify the left subclavian vein and I chose this for insertion of the Port-A-Cath. After the patient's chest and neck were prepped with chloreprep solution and draped I used a mini stick to get into the left subclavian vein. Then I passed a small guidewire measuring 0.018 inch in diameter into the vein. Then this was switched over to a catheter to accommodate larger guidewire measuring 0.035 inches in diameter which was basically a J-wire. Then I used a 9 Jamaican valved vessel dilator over the guidewire which was then pulled out. Then I introduced a 8 Jamaican [facility] and positioned it on the distal part of the superior vena cava. An x-ray was obtained to confirm the position of the tip. The tip was about 22 cm from the insertion site then I made a small pocket 5 cm's below the entry site on the left chest below the clavicle to accommodate the port after injecting local anesthesia with 1% Xylocaine. Then I tunneled the polyurethane catheter from the entry site to this pocket in the chest wall and I connected it to low-profile Dignity port from [facility] using a catheter lock. Excellent blood return was obtained at the end of the procedure and this was flushed with heparinized saline. Then the port was attached to the chest wall muscle using 0 Vicryl sutures. Subcutaneous tissues was closed with 3-0 chromic and the skin by 4-0 Monocryl subcuticular stitches. Dressing was applied with Adaptic and 4 x 4 and the patient tolerated the procedure well and left operating room in stable condition. Anesthesia MAC Implants Low-profile port called dignity from [facility] Pathology / specimen None Estimated Blood Loss 20 Surgeon Jean Claude Vargas MD Surgical Staff Operation Date: 06/17/25 14:45 <No data on this case meets the specified criteria>
[2025-06-17 16:00] VITALS: BP 139/63; PULSE 64; RESP 16; TEMP 36.2; O2SAT 98
[2025-06-17 16:30] VITALS: BP 146/61; PULSE 69; RESP 18; TEMP 36.4; O2SAT 98
--- NOTE | 2025-06-17 16:35 | SUR.PHASEII ---
1635: Pt. AAOx4, vitals stable, breathing unlabored, no complaint of pain or nausea, dressing to left upper chest CDI, no active bleed noted, pt. tolerated sips of water well, gave discharge instructions to the pt. and her ride, both verbalized understanding and had no further questions. Pt. left with all personal belongings.
== END 2025-06-17 16:35 | disposition home or self-care (01) ==
LOC: S2EX 16:55
PROVIDERS: Family Provider Surgery; PCP Family Medicine; Referring Provider Surgery; Visit Provider Surgery
PROC: (CPT 36571; principal; 2025-06-17 14:30)
DX: C90.00 Multiple myeloma not having achieved remission (principal); I87.1 Compression of vein; Z01.810 Encounter for preprocedural cardiovascular examination
CPT/HCPCS: 36571; 71045; 71046; 80053; 85025; 85610; 85730; 93005; A4217; A4649; C1788; C1894; J1643; J2405; J2704; J3010

== ENCOUNTER 2025-06-30 07:53 | Outpatient (RCR) | payer MEDICARE, BC, SELFPAY ==
[2025-06-09 09:05] LABS: Basophils # (Auto) 0.0 Thou/mm3 (0.0-0.2); Basophils % (Auto) 1 % (0-2.5); Eosinophils # (Auto) 0.2 Thou/mm3 (0.0-0.5); Eosinophils % (Auto) 3 % (0-10); Hematocrit 37.3 % (36.0-46.0); Hemoglobin 12.8 g/dL (12.0-16.0); Immature Granulocytes Auto 0.03 Thou/mm3 (0.00-0.00); Lymphocytes # (Auto) 0.7 Thou/mm3 (1.0-4.8); Lymphocytes % (Auto) 14 % (10-50); Mean Corpuscular HGB Conc 34.3 g/dl (31.0-37.0); Mean Corpuscular Hemoglobin 33.1 pg (25.0-35.0); Mean Corpuscular Volume 96 fL (80-100); Monocytes # (Auto) 0.5 Thou/mm3 (0.0-0.8); Monocytes % (Auto) 9 % (0-12); Neutrophils # (Auto) 3.7 Thou/mm3 (1.8-7.7); Neutrophils % (Auto) 73 % (37-80); Nucleated Red Blood Cell # 0.00 Thou/mm3 (0.00-0.00); Nucleated Red Blood Cell % 0 /100 WBC (0); Platelet Count 221 Thou/mm3 (140-440); RDW Standard Deviation 46.8 fL (36.4-46.3); Red Blood Count 3.87 Miln/mm3 (4.00-5.20); White Blood Count 5.0 Thou/mm3 (3.6-11.0)
[2025-06-09 09:25] LABS: Alanine Aminotransferase 12 U/L (10-49); Albumin, Serum 4.1 gm/dL (3.4-4.8); Albumin/Globulin Ratio 2.4 (1.2-2.2); Alkaline Phosphatase 48 U/L (46-116); Anion Gap 7 (7-16); Aspartate Amino Transferase 27 U/L (0-34); BUN/Creatinine Ratio 17 Ratio (12-20); Bilirubin,Total 0.6 mg/dL (0.3-1.2); Blood Urea Nitrogen 12 mg/dL (9-23); Calcium 8.9 mg/dL (8.3-10.6); Calcium (Corrected) 8.9 mg/dL (8.5-10.1); Carbon Dioxide 27.6 mMol/L (20.0-31.0); Chloride 97 mMol/L (98-107); Creatinine (Component) 0.7 mg/dL (0.6-1.3); Globulin 1.7 gm/dL (2.3-3.5); Glucose 84 mg/dL (74-106); Osmolality,Calculated 263 (275-295); Potassium 4.7 mMol/L (3.4-5.1); Sodium 132 mMol/L (136-145); Total Protein 5.8 gm/dL (5.7-8.2); eGFR > 60 See Note
[2025-06-16 09:04] LABS: Basophils # (Auto) 0.0 Thou/mm3 (0.0-0.2); Basophils % (Auto) 1 % (0-2.5); Eosinophils # (Auto) 0.1 Thou/mm3 (0.0-0.5); Eosinophils % (Auto) 2 % (0-10); Hematocrit 38.1 % (36.0-46.0); Hemoglobin 13.2 g/dL (12.0-16.0); Immature Granulocytes Auto 0.02 Thou/mm3 (0.00-0.00); Lymphocytes # (Auto) 0.7 Thou/mm3 (1.0-4.8); Lymphocytes % (Auto) 17 % (10-50); Mean Corpuscular HGB Conc 34.6 g/dl (31.0-37.0); Mean Corpuscular Hemoglobin 33.8 pg (25.0-35.0); Mean Corpuscular Volume 98 fL (80-100); Monocytes # (Auto) 0.4 Thou/mm3 (0.0-0.8); Monocytes % (Auto) 9 % (0-12); Neutrophils # (Auto) 3.1 Thou/mm3 (1.8-7.7); Neutrophils % (Auto) 71 % (37-80); Nucleated Red Blood Cell # 0.00 Thou/mm3 (0.00-0.00); Nucleated Red Blood Cell % 0 /100 WBC (0); Platelet Count 221 Thou/mm3 (140-440); RDW Standard Deviation 46.6 fL (36.4-46.3); Red Blood Count 3.90 Miln/mm3 (4.00-5.20); White Blood Count 4.3 Thou/mm3 (3.6-11.0)
[2025-06-16 09:24] LABS: Alanine Aminotransferase 13 U/L (10-49); Albumin, Serum 4.5 gm/dL (3.4-4.8); Albumin/Globulin Ratio 2.5 (1.2-2.2); Alkaline Phosphatase 53 U/L (46-116); Anion Gap 9 (7-16); Aspartate Amino Transferase 33 U/L (0-34); BUN/Creatinine Ratio 9 Ratio (12-20); Bilirubin,Total 0.8 mg/dL (0.3-1.2); Blood Urea Nitrogen 6 mg/dL (9-23); Calcium 9.9 mg/dL (8.3-10.6); Calcium (Corrected) 9.9 mg/dL (8.5-10.1); Carbon Dioxide 25.8 mMol/L (20.0-31.0); Chloride 99 mMol/L (98-107); Creatinine (Component) 0.7 mg/dL (0.6-1.3); Globulin 1.8 gm/dL (2.3-3.5); Glucose 82 mg/dL (74-106); Osmolality,Calculated 264 (275-295); Potassium 4.0 mMol/L (3.4-5.1); Sodium 134 mMol/L (136-145); Total Protein 6.3 gm/dL (5.7-8.2); eGFR > 60 See Note
[2025-06-16 09:35] LABS: INR 1.0 (0.9-1.3); Partial Thromboplastin Time 28.8 Seconds (22.0-36.0); Prothrombin Time 10.5 Seconds (9.0-12.2)
[2025-06-23 08:47] LABS: Basophils # (Auto) 0.0 Thou/mm3 (0.0-0.2); Basophils % (Auto) 1 % (0-2.5); Eosinophils # (Auto) 0.2 Thou/mm3 (0.0-0.5); Eosinophils % (Auto) 3 % (0-10); Hematocrit 34.3 % (36.0-46.0); Hemoglobin 11.6 g/dL (12.0-16.0); Immature Granulocytes Auto 0.04 Thou/mm3 (0.00-0.00); Lymphocytes # (Auto) 0.7 Thou/mm3 (1.0-4.8); Lymphocytes % (Auto) 12 % (10-50); Mean Corpuscular HGB Conc 33.8 g/dl (31.0-37.0); Mean Corpuscular Hemoglobin 33.2 pg (25.0-35.0); Mean Corpuscular Volume 98 fL (80-100); Monocytes # (Auto) 0.4 Thou/mm3 (0.0-0.8); Monocytes % (Auto) 7 % (0-12); Neutrophils # (Auto) 4.5 Thou/mm3 (1.8-7.7); Neutrophils % (Auto) 76 % (37-80); Nucleated Red Blood Cell # 0.00 Thou/mm3 (0.00-0.00); Nucleated Red Blood Cell % 0 /100 WBC (0); Platelet Count 200 Thou/mm3 (140-440); RDW Standard Deviation 46.8 fL (36.4-46.3); Red Blood Count 3.49 Miln/mm3 (4.00-5.20); White Blood Count 5.9 Thou/mm3 (3.6-11.0)
[2025-06-23 09:01] LABS: Alanine Aminotransferase 12 U/L (10-49); Albumin, Serum 4.0 gm/dL (3.4-4.8); Albumin/Globulin Ratio 2.4 (1.2-2.2); Alkaline Phosphatase 52 U/L (46-116); Anion Gap 6 (7-16); Aspartate Amino Transferase 26 U/L (0-34); BUN/Creatinine Ratio 17 Ratio (12-20); Bilirubin,Total 0.5 mg/dL (0.3-1.2); Blood Urea Nitrogen 12 mg/dL (9-23); Calcium 9.4 mg/dL (8.3-10.6); Calcium (Corrected) 9.4 mg/dL (8.5-10.1); Carbon Dioxide 28.3 mMol/L (20.0-31.0); Chloride 101 mMol/L (98-107); Creatinine (Component) 0.7 mg/dL (0.6-1.3); Globulin 1.7 gm/dL (2.3-3.5); Glucose 86 mg/dL (74-106); Osmolality,Calculated 268 (275-295); Potassium 4.3 mMol/L (3.4-5.1); Sodium 135 mMol/L (136-145); Total Protein 5.7 gm/dL (5.7-8.2); eGFR > 60 See Note
[2025-06-29 19:51] LABS: Abnormal protein band 1 0.2 g/dL (NONE DETECTED); Albumin 3.8 g/dL (3.8-4.8); Alpha-1-Globulin 0.3 g/dL (0.2-0.3); Alpha-2-Globulin 0.7 g/dL (0.5-0.9); Beta-1-Globulin 0.3 g/dL (0.4-0.6); Beta-2-globulin 0.2 g/dL (0.2-0.5); Gamma Globulin 0.4 g/dL (0.8-1.7)
[2025-06-29 23:34] LABS: Immunoglobulin G 496 mg/dL (600-1540); Kappa Light Chain, Free 22.5 mg/L (3.3-19.4); Lambda Light Chain, Free 4.0 mg/L (5.7-26.3)
[2025-06-30 06:32] LABS: Beta 2 Microglobulin 1.90 mg/L (< OR = 2.51); Immunoglobulin A 32 mg/dL (70-320); Immunoglobulin M 13 mg/dL (50-300); Kappa/Lambda, Free Ratio 5.62 (0.26-1.65); Protein, total, serum 5.7 g/dL (6.1-8.1)
[2025-06-30 08:56] LABS: Basophils # (Auto) 0.0 Thou/mm3 (0.0-0.2); Basophils % (Auto) 1 % (0-2.5); Eosinophils # (Auto) 0.2 Thou/mm3 (0.0-0.5); Eosinophils % (Auto) 2 % (0-10); Hematocrit 34.7 % (36.0-46.0); Hemoglobin 12.0 g/dL (12.0-16.0); Immature Granulocytes Auto 0.04 Thou/mm3 (0.00-0.00); Lymphocytes # (Auto) 0.8 Thou/mm3 (1.0-4.8); Lymphocytes % (Auto) 9 % (10-50); Mean Corpuscular HGB Conc 34.6 g/dl (31.0-37.0); Mean Corpuscular Hemoglobin 34.0 pg (25.0-35.0); Mean Corpuscular Volume 98 fL (80-100); Monocytes # (Auto) 0.6 Thou/mm3 (0.0-0.8); Monocytes % (Auto) 7 % (0-12); Neutrophils # (Auto) 6.6 Thou/mm3 (1.8-7.7); Neutrophils % (Auto) 80 % (37-80); Nucleated Red Blood Cell # 0.00 Thou/mm3 (0.00-0.00); Nucleated Red Blood Cell % 0 /100 WBC (0); Platelet Count 239 Thou/mm3 (140-440); RDW Standard Deviation 46.5 fL (36.4-46.3); Red Blood Count 3.53 Miln/mm3 (4.00-5.20); White Blood Count 8.2 Thou/mm3 (3.6-11.0)
[2025-06-30 09:14] LABS: Alanine Aminotransferase 15 U/L (10-49); Albumin, Serum 4.1 gm/dL (3.4-4.8); Albumin/Globulin Ratio 2.4 (1.2-2.2); Alkaline Phosphatase 58 U/L (46-116); Anion Gap 9 (7-16); Aspartate Amino Transferase 24 U/L (0-34); BUN/Creatinine Ratio 17 Ratio (12-20); Bilirubin,Total 0.7 mg/dL (0.3-1.2); Blood Urea Nitrogen 12 mg/dL (9-23); Calcium 9.6 mg/dL (8.3-10.6); Calcium (Corrected) 9.6 mg/dL (8.5-10.1); Carbon Dioxide 25.9 mMol/L (20.0-31.0); Chloride 98 mMol/L (98-107); Creatinine (Component) 0.7 mg/dL (0.6-1.3); Globulin 1.7 gm/dL (2.3-3.5); Glucose 76 mg/dL (74-106); Osmolality,Calculated 265 (275-295); Potassium 4.1 mMol/L (3.4-5.1); Sodium 133 mMol/L (136-145); Total Protein 5.8 gm/dL (5.7-8.2); eGFR > 60 See Note
== END 2025-07-03 23:59 | disposition home or self-care (01) ==
LOC: SCTC 07:53
PROVIDERS: PCP Family Medicine; Referring Provider Family Medicine; Visit Provider Internal Medicine Hematology & Oncology
DX: Z51.11 Encounter for antineoplastic chemotherapy (principal); C90.00 Multiple myeloma not having achieved remission; Z92.3 Personal history of irradiation; G89.29 Other chronic pain; M54.9 Dorsalgia, unspecified; D64.9 Anemia, unspecified
CPT/HCPCS: 80053; 82232; 82784; 83521; 84155; 84165; 85025; 85610; 85730; 86334; 96367; 96413; A4216; J1100; J1642; J2405; J3489; J7040; J7050; J9075

== ENCOUNTER 2025-07-28 07:58 | Outpatient (RCR) | payer MEDICARE, BC, SELFPAY ==
[2025-07-07 08:49] LABS: Basophils # (Auto) 0.0 Thou/mm3 (0.0-0.2); Basophils % (Auto) 1 % (0-2.5); Eosinophils # (Auto) 0.2 Thou/mm3 (0.0-0.5); Eosinophils % (Auto) 4 % (0-10); Hematocrit 34.9 % (36.0-46.0); Hemoglobin 12.0 g/dL (12.0-16.0); Immature Granulocytes Auto 0.04 Thou/mm3 (0.00-0.00); Lymphocytes # (Auto) 0.7 Thou/mm3 (1.0-4.8); Lymphocytes % (Auto) 14 % (10-50); Mean Corpuscular HGB Conc 34.4 g/dl (31.0-37.0); Mean Corpuscular Hemoglobin 33.5 pg (25.0-35.0); Mean Corpuscular Volume 98 fL (80-100); Monocytes # (Auto) 0.4 Thou/mm3 (0.0-0.8); Monocytes % (Auto) 9 % (0-12); Neutrophils # (Auto) 3.6 Thou/mm3 (1.8-7.7); Neutrophils % (Auto) 72 % (37-80); Nucleated Red Blood Cell # 0.00 Thou/mm3 (0.00-0.00); Nucleated Red Blood Cell % 0 /100 WBC (0); Platelet Count 221 Thou/mm3 (140-440); RDW Standard Deviation 45.4 fL (36.4-46.3); Red Blood Count 3.58 Miln/mm3 (4.00-5.20); White Blood Count 5.0 Thou/mm3 (3.6-11.0)
[2025-07-07 09:09] LABS: Alanine Aminotransferase 11 U/L (10-49); Albumin, Serum 4.0 gm/dL (3.4-4.8); Albumin/Globulin Ratio 2.5 (1.2-2.2); Alkaline Phosphatase 51 U/L (46-116); Anion Gap 8 (7-16); Aspartate Amino Transferase 24 U/L (0-34); BUN/Creatinine Ratio 13 Ratio (12-20); Bilirubin,Total 0.4 mg/dL (0.3-1.2); Blood Urea Nitrogen 9 mg/dL (9-23); Calcium 9.6 mg/dL (8.3-10.6); Calcium (Corrected) 9.6 mg/dL (8.5-10.1); Carbon Dioxide 27.9 mMol/L (20.0-31.0); Chloride 100 mMol/L (98-107); Creatinine (Component) 0.7 mg/dL (0.6-1.3); Globulin 1.6 gm/dL (2.3-3.5); Glucose 75 mg/dL (74-106); Osmolality,Calculated 269 (275-295); Potassium 4.4 mMol/L (3.4-5.1); Sodium 136 mMol/L (136-145); Total Protein 5.6 gm/dL (5.7-8.2); eGFR > 60 See Note
[2025-07-14 09:04] LABS: Alanine Aminotransferase 13 U/L (10-49); Albumin, Serum 4.2 gm/dL (3.4-4.8); Albumin/Globulin Ratio 2.5 (1.2-2.2); Alkaline Phosphatase 52 U/L (46-116); Anion Gap 7 (7-16); Aspartate Amino Transferase 26 U/L (0-34); BUN/Creatinine Ratio 18 Ratio (12-20); Bilirubin,Total 0.7 mg/dL (0.3-1.2); Blood Urea Nitrogen 11 mg/dL (9-23); Calcium 9.2 mg/dL (8.3-10.6); Calcium (Corrected) 9.2 mg/dL (8.5-10.1); Carbon Dioxide 27.4 mMol/L (20.0-31.0); Chloride 98 mMol/L (98-107); Creatinine (Component) 0.6 mg/dL (0.6-1.3); Globulin 1.7 gm/dL (2.3-3.5); Glucose 88 mg/dL (74-106); Osmolality,Calculated 262 (275-295); Potassium 4.1 mMol/L (3.4-5.1); Sodium 132 mMol/L (136-145); Total Protein 5.9 gm/dL (5.7-8.2); eGFR > 60 See Note
[2025-07-14 09:05] LABS: Basophils # (Auto) 0.1 Thou/mm3 (0.0-0.2); Basophils % (Auto) 1 % (0-2.5); Eosinophils # (Auto) 0.1 Thou/mm3 (0.0-0.5); Eosinophils % (Auto) 2 % (0-10); Hematocrit 33.7 % (36.0-46.0); Hemoglobin 11.7 g/dL (12.0-16.0); Immature Granulocytes Auto 0.03 Thou/mm3 (0.00-0.00); Lymphocytes # (Auto) 0.7 Thou/mm3 (1.0-4.8); Lymphocytes % (Auto) 13 % (10-50); Mean Corpuscular HGB Conc 34.7 g/dl (31.0-37.0); Mean Corpuscular Hemoglobin 33.8 pg (25.0-35.0); Mean Corpuscular Volume 97 fL (80-100); Monocytes # (Auto) 0.4 Thou/mm3 (0.0-0.8); Monocytes % (Auto) 8 % (0-12); Neutrophils # (Auto) 4.0 Thou/mm3 (1.8-7.7); Neutrophils % (Auto) 75 % (37-80); Nucleated Red Blood Cell # 0.00 Thou/mm3 (0.00-0.00); Nucleated Red Blood Cell % 0 /100 WBC (0); Platelet Count 210 Thou/mm3 (140-440); RDW Standard Deviation 44.7 fL (36.4-46.3); Red Blood Count 3.46 Miln/mm3 (4.00-5.20); White Blood Count 5.3 Thou/mm3 (3.6-11.0)
--- NOTE | 2025-07-18 14:13 | CTCFLWUP_ITS ---
Patient: MAIA GUZMAN : 1940 Page 6 of 8 FOLLOW UP NOTE DATE OF SERVICE: 07/18/2025 NAME: MAIA GUZMAN ACCOUNT: [id number] : 1940 AGE: 84 INTERVAL HISTORY: Patient is on modified dose of cyclophosphamide and dexamethasone. Patient's last scan showed none progression of myeloma. ONCOLOGY HISTORY: DIAGNOSIS: Multiple myeloma in remission [ICD10] C90.01 DATE OF DIAGNOSIS: 2014 STAGE/TNM: myeloma TREATMENT HISTORY: Care?Plan Start?Date Cycle Day Intent KYPROLIS?MAINT?#2 05/24/2015 1 28 Palliative KYPROLIS?20mg/m*2?MAINT 01/21/2017 1 28 Palliative KYPROLIS?MAINT 07/23/2017 1 28 Palliative KYPROLIS?MAINT?#2 07/22/2017 1 28 Palliative KYPROLIS?MAINT 01/13/2018 1 28 Definitive DARatumumab?Weekly?douglas 02/01/2021 1 7 Palliative DARatumumab?Every?2?weeks 04/30/2021 1 14 Palliative DARatumumab?q?2?weeks 04/30/2021 1 14 Palliative DARAtumumab?q?4?weeks 09/20/2021 1 28 Palliative DARAtumumab?every?4?weeks 04/22/2023 11 28 Palliative Elotuzumab?cy?1and2?and?3+ 03/15/2024 1 28 Palliative Bortezomib?1.3?mg/m*2?SQ,?Rx?Dex?40?mg?Weekly?-?Trnsp,?Salv 09/27/2024 1 21 Palliative VCd?dose?reduced?multiple?myeloma 11/08/2024 1 21 Palliative VENOfer?200mg?IV?wkly?for?10?weeks 02/02/2025 1 70 Maintenance HISTORY OF PRESENT ILLNESS: Maia Guzman is a 84-year-old female with following history. 05/16/2014: MRI without contrast showed suspicious lesions for metastatic disease. 05/17/2014: MRI showed fracture of the vertebra with bilateral lower extremity weakness. 05/20/2014: she had T1-T5 fusion, T2 corpectomy, tumor resection, laminectomy and decompression at [place]. Frozen sections showed myeloma. 05/23/2014: Bone marrow biopsy showed 34% plasma cells. FISH testing showed multiple chromosomal abnormalities. 06/25/2014: Patient was started on cyclophosphamide, bortezomib and Decadron. 07/15/2014: Single fraction of palliative radiation therapy was delivered to spine from T12-L5 for 800 cGy. 08/08/2014-09/01/2014 the patient received 2 more cycles of cyclophosphamide and bortezomib. Following that Velcade was held due to worsening neuropathy. Since then patient has been on Kyprolis as well as Revlimid. 05/24/2015: Patient was started on Kyprolis here in [place]. Her last Kyprolis was given on 04/29/2018. 01/28/2018: Patient received last dose of Zometa. May 2018: Patient continued on maintenance Revlimid. 11/09/2020: PET CT scan was done at [place]? 12/19/2020: Whole body MRI scans done at [place]? 12/25/2020: IgG 917, kappa light chains 48.7. 02/01/2021: Patient is started on daratumumab, Pomalyst and steroids. 05/21/2021: [place] light chain 25.9, IgG 474. 09/18/2021: [place] light chain 32.6, IgG 464, 11/20/2021: PET/CT scan? 12/19/2021: Free kappa light chain 21.2, IgG 470. 03/18/2022: Free kappa light chain 23.9, IgG 419. 06/24/2022 IgG 450. Free kappa light chain 23.3. 09/16/2022: IgG 453, free kappa light chain 20.0 12/11/2022: Ms. Guzman had radiation therapy to the left frontal bone at [place] for a PET scan documented enlarging lesion. 12/18/2022: IgG 468, free kappa light chains 26.4. Beta-2 microglobulin 1.83. Immunofixation study revealed 1 trace concentration band migrating in the gamma region. 03/18/2023: IgG 453 (600?1540), beta-2 microglobulin 2.0. 06/18/2023: IgG 509, kappa light chains 24.5. 2 microglobulin 1.92. Abnormal protein band 0.2. 09/17/2023: IgG 555, kappa light chains 26.6. 12/17/2023: IgG 618, kappa light chains 42. 01/19/2024: IgG 779, kappa light chains 47.8. 02/13/2024: PET/CT scan was done at [place] 02/16/2024: IgG 840, kappa light chains 50.8. 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 acyclovir - 400 mg Twice a Day 2. aspirin - 81 mg 1 tab Daily 3. gabapentin - 300 mg 3 Capsule 3 capsules three times daily 4. gabapentin - 600 mg 1 tab 1 tab three times daily 5. lisinopril - 5 mg 1 tab Daily Medications Last Reconciled by Niecy Ramos MA on 07/18/2025 ALLERGIES: Compazine REVIEW OF SYSTEMS: A complete 14-point review of systems was performed and is negative except as noted in interval history. PHYSICAL EXAMINATION: VITAL SIGNS: Temperature?98.6, B/P?129/76, Oxygen?Saturation?98% Weight?102?lbs (Change?since?07/14/25:?0?lbs) PAIN: 0 - No pain ECOG Performance Status: 0 - Asymptomatic and fully active GENERAL APPEARANCE: Appears well, in no apparent distress, appropriately interactive. HEENT: Normocephalic, no temporal wasting, normal conjunctiva, no scleral icterus, normal hearing, lips without lesions, neck normal range of motion. CARDIOVASCULAR: Not assessed. PULMONARY: Normal respiratory effort, no respiratory distress or use of accessory muscles, speaking in full sentences, no tachypnea. EXTREMITIES: No pedal edema or cyanosis. SKIN: Normal skin appearance. NEUROLOGIC: Alert and oriented x4. PSHYCHIATRIC: Appropriate affect, mood normal, behavior normal, intact thought and speech. LABORATORY DATA: I have personally reviewed and interpreted each of the patient?s relevant lab tests, abnormal findings are below: Date 07/07/25 07/14/25 ??WHITE?BLOOD?COUNT?(Thou/mm3) 5.0 5.3 ??RED?BLOOD?COUNT?(Miln/mm3) 3.58?L 3.46?L ??HEMOGLOBIN?(gm/dl) 12.0 11.7?L ??HEMATOCRIT?(%) 34.9?L 33.7?L ??PLATELET?COUNT?(Thou/mm3) 221 210 ??NEUTROPHILS?%,?AUTO?(%) 72 75 ??LYMPH?%,?AUTO?(%) 14 13 ??NEUTROPHILS,?AUTO?(Thou/mm3) 3.6 4.0 ??GLUCOSE,RANDOM?(mg/dL) 75 88 ??BLOOD?UREA?NITROGEN?(mg/dL) 9 11 ??CREATININE?(mg/dL) 0.70 0.60 ??SODIUM?(mmol/L) 136 132?L ??POTASSIUM?(mmol/L) 4.4 4.1 ??CHLORIDE?(mmol/L) 100 98 ??CrCl?(CandG)?(ml/min) 44.56 51.89 ??AST/SGOT?(Unit/L) 24 26 ??ALT/SGPT?(Unit/L) 11 13 ??ALKALINE?PHOSPHATASE?(Unit/L) 51 52 ??BILIRUBIN,?TOTAL?(mg/dL) 0.4 0.7 ??PROTEIN?TOTAL?(gm/dl) 5.6?L 5.9 ??ALBUMIN,?SERUM?(gm/dl) 4.0 4.2 ??GLOBULIN?(gm/dl) 1.6?L 1.7?L ??ALBUMIN/GLOBULIN?RATIO 2.5?H 2.5?H ??CALCIUM,?SERUM?(mg/dL) 9.6 9.2 ??CALCIUM?SERUM?(CORRECTED)?(mg/dL) 9.6 9.2 ASSESSMENT/PLAN: stage III IgG G kappa myeloma Pain is better controlled now. She says she have no new pain. Her chronic pain in the back is the only 1 and is well-controlled. Patient's kappa lambda chain have been decreasing Patient's M protein has also decreased S/p radiation therapy to the left frontal bone lesion which was enlarging on the PET scan. Patient received radiation therapy at [place]. Patient s/p radiation to rib On cyclophosamide low dose and dexamethasone reduced dose Anemia Transfusion and iron infusion was done Repeat iron and vitamin level Hb improved ORDERS: Order # Description [id number] Iron Panel + Vitamin B-12 + Ferritin + Folic Acid; Serum [id number] Free kappa and lambda light chains plus ratio, quantitative + Serum Immunofixation Electrophoresis + Serum Protein Electrophoresis [id number] Follow Up 3 Months RETURN TO CLINIC: I reviewed the diagnosis, prognosis, and recommended treatment/procedure options with the patient (and/or their legal education courses sales representative), including the potential benefits, risks, side effects and alternative therapies. We also discussed the option of no treatment and the possibility of clinical trial participation, if applicable. All questions were addressed, and they demonstrated understanding. They provided informed consent to proceed with the proposed plan of care. BILLING AND COMPLIANCE: I reviewed external records from providers outside my specialty as summarized above. I spent a total of 50 minutes on this patient?s care on the day of their visit excluding time spent related to any billed procedures. This time includes time spent with the patient as well as time spent documenting in the medical record, reviewing patients records and tests, obtaining history, placing orders, communicating with other healthcare professionals, counseling the patient, family or caregiver, and/or care coordination for the diagnoses above. Electronically Signed by: Stu Silveira MD T: 2:11 PM CC: Bhaskar?Myles,? PCP: Bhaskar Bueno Referring: Bhaskar Bueno This document was completed utilizing speech recognition software. Grammatical errors, random word insertions, pronoun errors, and incomplete sentences are an occasional consequence of this system due to software limitations, ambient noise, and hardware issues. Any formal questions or concerns about the content, text or information contained within the body of this dictation should be directly addressed to the provider for clarification.
[2025-07-21 08:53] LABS: Basophils # (Auto) 0.0 Thou/mm3 (0.0-0.2); Basophils % (Auto) 1 % (0-2.5); Eosinophils # (Auto) 0.1 Thou/mm3 (0.0-0.5); Eosinophils % (Auto) 2 % (0-10); Hematocrit 34.5 % (36.0-46.0); Hemoglobin 12.0 g/dL (12.0-16.0); Immature Granulocytes Auto 0.04 Thou/mm3 (0.00-0.00); Lymphocytes # (Auto) 0.7 Thou/mm3 (1.0-4.8); Lymphocytes % (Auto) 13 % (10-50); Mean Corpuscular HGB Conc 34.8 g/dl (31.0-37.0); Mean Corpuscular Hemoglobin 34.1 pg (25.0-35.0); Mean Corpuscular Volume 98 fL (80-100); Monocytes # (Auto) 0.4 Thou/mm3 (0.0-0.8); Monocytes % (Auto) 8 % (0-12); Neutrophils # (Auto) 3.7 Thou/mm3 (1.8-7.7); Neutrophils % (Auto) 75 % (37-80); Nucleated Red Blood Cell # 0.00 Thou/mm3 (0.00-0.00); Nucleated Red Blood Cell % 0 /100 WBC (0); Platelet Count 234 Thou/mm3 (140-440); RDW Standard Deviation 45.2 fL (36.4-46.3); Red Blood Count 3.52 Miln/mm3 (4.00-5.20); White Blood Count 5.0 Thou/mm3 (3.6-11.0)
[2025-07-21 09:13] LABS: Alanine Aminotransferase 12 U/L (10-49); Albumin, Serum 4.1 gm/dL (3.4-4.8); Albumin/Globulin Ratio 2.4 (1.2-2.2); Alkaline Phosphatase 50 U/L (46-116); Anion Gap 8 (7-16); Aspartate Amino Transferase 24 U/L (0-34); BUN/Creatinine Ratio 17 Ratio (12-20); Bilirubin,Total 0.5 mg/dL (0.3-1.2); Blood Urea Nitrogen 10 mg/dL (9-23); Calcium 9.2 mg/dL (8.3-10.6); Calcium (Corrected) 9.2 mg/dL (8.5-10.1); Carbon Dioxide 27.2 mMol/L (20.0-31.0); Chloride 101 mMol/L (98-107); Creatinine (Component) 0.6 mg/dL (0.6-1.3); Globulin 1.7 gm/dL (2.3-3.5); Glucose 85 mg/dL (74-106); Osmolality,Calculated 269 (275-295); Potassium 4.0 mMol/L (3.4-5.1); Sodium 136 mMol/L (136-145); Total Protein 5.8 gm/dL (5.7-8.2); eGFR > 60 See Note
[2025-07-21 09:15] LABS: Folate 16.19 ng/mL (>5.38); Vitamin B12 293 pg/mL (211-911)
[2025-07-21 09:16] LABS: Ferritin 521 ng/mL (7.3-270.7); Iron 90 mcg/dL (50-170); Percent Iron Saturation 34 % (20-55); Total Iron Binding Capacity 262 mcg/dL (250-425); Unsaturated Iron Binding 172 (225-295)
[2025-07-28 08:26] LABS: Basophils # (Auto) 0.1 Thou/mm3 (0.0-0.2); Basophils % (Auto) 1 % (0-2.5); Eosinophils # (Auto) 0.2 Thou/mm3 (0.0-0.5); Eosinophils % (Auto) 4 % (0-10); Hematocrit 35.8 % (36.0-46.0); Hemoglobin 12.3 g/dL (12.0-16.0); Immature Granulocytes Auto 0.03 Thou/mm3 (0.00-0.00); Lymphocytes # (Auto) 0.8 Thou/mm3 (1.0-4.8); Lymphocytes % (Auto) 15 % (10-50); Mean Corpuscular HGB Conc 34.4 g/dl (31.0-37.0); Mean Corpuscular Hemoglobin 33.8 pg (25.0-35.0); Mean Corpuscular Volume 98 fL (80-100); Monocytes # (Auto) 0.5 Thou/mm3 (0.0-0.8); Monocytes % (Auto) 8 % (0-12); Neutrophils # (Auto) 3.9 Thou/mm3 (1.8-7.7); Neutrophils % (Auto) 71 % (37-80); Nucleated Red Blood Cell # 0.00 Thou/mm3 (0.00-0.00); Nucleated Red Blood Cell % 0 /100 WBC (0); Platelet Count 220 Thou/mm3 (140-440); RDW Standard Deviation 45.3 fL (36.4-46.3); Red Blood Count 3.64 Miln/mm3 (4.00-5.20); White Blood Count 5.5 Thou/mm3 (3.6-11.0)
[2025-07-28 08:53] LABS: Alanine Aminotransferase 14 U/L (10-49); Albumin, Serum 4.4 gm/dL (3.4-4.8); Albumin/Globulin Ratio 2.2 (1.2-2.2); Alkaline Phosphatase 51 U/L (46-116); Anion Gap 8 (7-16); Aspartate Amino Transferase 29 U/L (0-34); BUN/Creatinine Ratio 18 Ratio (12-20); Bilirubin,Total 0.6 mg/dL (0.3-1.2); Blood Urea Nitrogen 11 mg/dL (9-23); Calcium 9.5 mg/dL (8.3-10.6); Calcium (Corrected) 9.5 mg/dL (8.5-10.1); Carbon Dioxide 26.1 mMol/L (20.0-31.0); Chloride 101 mMol/L (98-107); Creatinine (Component) 0.6 mg/dL (0.6-1.3); Globulin 2.0 gm/dL (2.3-3.5); Glucose 84 mg/dL (74-106); Osmolality,Calculated 268 (275-295); Potassium 4.2 mMol/L (3.4-5.1); Sodium 135 mMol/L (136-145); Total Protein 6.4 gm/dL (5.7-8.2); eGFR > 60 See Note
[2025-08-01 22:05] LABS: Immunoglobulin G 592 mg/dL (600-1540); Kappa Light Chain, Free 27.7 mg/L (3.3-19.4); Lambda Light Chain, Free 5.4 mg/L (5.7-26.3)
[2025-08-02 15:38] LABS: Abnormal protein band 1 0.3 g/dL (NONE DETECTED); Albumin 4.0 g/dL (3.8-4.8); Alpha-1-Globulin 0.3 g/dL (0.2-0.3); Alpha-2-Globulin 0.7 g/dL (0.5-0.9); Beta-1-Globulin 0.4 g/dL (0.4-0.6); Beta-2-globulin 0.2 g/dL (0.2-0.5); Gamma Globulin 0.5 g/dL (0.8-1.7)
[2025-08-03 07:05] LABS: Beta 2 Microglobulin 1.87 mg/L (< OR = 2.51); Immunoglobulin A 36 mg/dL (70-320); Immunoglobulin M 14 mg/dL (50-300); Kappa/Lambda, Free Ratio 5.13 (0.26-1.65)
[2025-08-03 07:11] LABS: Protein, total, serum 6.1 g/dL (6.1-8.1)
== END 2025-08-02 23:59 | disposition home or self-care (01) ==
LOC: SCTC 07:58
PROVIDERS: PCP Family Medicine; Referring Provider Family Medicine; Visit Provider Internal Medicine Hematology & Oncology
DX: Z51.11 Encounter for antineoplastic chemotherapy (principal); C90.01 Multiple myeloma in remission; G89.29 Other chronic pain; M54.9 Dorsalgia, unspecified; Z92.3 Personal history of irradiation; D64.9 Anemia, unspecified
CPT/HCPCS: 80053; 82232; 82607; 82728; 82746; 82784; 83521; 83540; 83550; 84155; 84165; 85025; 86334; 96367; 96413; 99212; A4216; J1100; J1642; J3490; J7040; J7050; J9075; G0463

== ENCOUNTER 2025-09-01 08:00 | Outpatient (RCR) | payer MEDICARE, BC, SELFPAY ==
[2025-08-04 08:39] LABS: Basophils # (Auto) 0.0 Thou/mm3 (0.0-0.2); Basophils % (Auto) 1 % (0-2.5); Eosinophils # (Auto) 0.2 Thou/mm3 (0.0-0.5); Eosinophils % (Auto) 4 % (0-10); Hematocrit 34.9 % (36.0-46.0); Hemoglobin 11.8 g/dL (12.0-16.0); Immature Granulocytes Auto 0.02 Thou/mm3 (0.00-0.00); Lymphocytes # (Auto) 0.8 Thou/mm3 (1.0-4.8); Lymphocytes % (Auto) 16 % (10-50); Mean Corpuscular HGB Conc 33.8 g/dl (31.0-37.0); Mean Corpuscular Hemoglobin 33.1 pg (25.0-35.0); Mean Corpuscular Volume 98 fL (80-100); Monocytes # (Auto) 0.4 Thou/mm3 (0.0-0.8); Monocytes % (Auto) 9 % (0-12); Neutrophils # (Auto) 3.4 Thou/mm3 (1.8-7.7); Neutrophils % (Auto) 70 % (37-80); Nucleated Red Blood Cell # 0.00 Thou/mm3 (0.00-0.00); Nucleated Red Blood Cell % 0 /100 WBC (0); Platelet Count 220 Thou/mm3 (140-440); RDW Standard Deviation 45.2 fL (36.4-46.3); Red Blood Count 3.57 Miln/mm3 (4.00-5.20); White Blood Count 4.8 Thou/mm3 (3.6-11.0)
[2025-08-04 09:19] LABS: Alanine Aminotransferase 12 U/L (10-49); Albumin, Serum 4.2 gm/dL (3.4-4.8); Albumin/Globulin Ratio 2.5 (1.2-2.2); Alkaline Phosphatase 46 U/L (46-116); Anion Gap 7 (7-16); Aspartate Amino Transferase 27 U/L (0-34); BUN/Creatinine Ratio 16 Ratio (12-20); Bilirubin,Total 0.5 mg/dL (0.3-1.2); Blood Urea Nitrogen 11 mg/dL (9-23); Calcium 9.0 mg/dL (8.3-10.6); Calcium (Corrected) 9.0 mg/dL (8.5-10.1); Carbon Dioxide 27.0 mMol/L (20.0-31.0); Chloride 103 mMol/L (98-107); Creatinine (Component) 0.7 mg/dL (0.6-1.3); Globulin 1.7 gm/dL (2.3-3.5); Glucose 84 mg/dL (74-106); Osmolality,Calculated 272 (275-295); Potassium 4.2 mMol/L (3.4-5.1); Sodium 137 mMol/L (136-145); Total Protein 5.9 gm/dL (5.7-8.2); eGFR > 60 See Note
[2025-08-11 08:46] LABS: Basophils # (Auto) 0.1 Thou/mm3 (0.0-0.2); Basophils % (Auto) 1 % (0-2.5); Eosinophils # (Auto) 0.2 Thou/mm3 (0.0-0.5); Eosinophils % (Auto) 3 % (0-10); Hematocrit 35.5 % (36.0-46.0); Hemoglobin 12.2 g/dL (12.0-16.0); Immature Granulocytes Auto 0.02 Thou/mm3 (0.00-0.00); Lymphocytes # (Auto) 0.8 Thou/mm3 (1.0-4.8); Lymphocytes % (Auto) 16 % (10-50); Mean Corpuscular HGB Conc 34.4 g/dl (31.0-37.0); Mean Corpuscular Hemoglobin 33.3 pg (25.0-35.0); Mean Corpuscular Volume 97 fL (80-100); Monocytes # (Auto) 0.5 Thou/mm3 (0.0-0.8); Monocytes % (Auto) 10 % (0-12); Neutrophils # (Auto) 3.7 Thou/mm3 (1.8-7.7); Neutrophils % (Auto) 71 % (37-80); Nucleated Red Blood Cell # 0.00 Thou/mm3 (0.00-0.00); Nucleated Red Blood Cell % 0 /100 WBC (0); Platelet Count 208 Thou/mm3 (140-440); RDW Standard Deviation 44.2 fL (36.4-46.3); Red Blood Count 3.66 Miln/mm3 (4.00-5.20); White Blood Count 5.2 Thou/mm3 (3.6-11.0)
[2025-08-11 09:11] LABS: Alanine Aminotransferase 13 U/L (10-49); Albumin, Serum 4.4 gm/dL (3.4-4.8); Albumin/Globulin Ratio 2.4 (1.2-2.2); Alkaline Phosphatase 47 U/L (46-116); Anion Gap 7 (7-16); Aspartate Amino Transferase 28 U/L (0-34); BUN/Creatinine Ratio 15 Ratio (12-20); Bilirubin,Total 0.6 mg/dL (0.3-1.2); Blood Urea Nitrogen 9 mg/dL (9-23); Calcium 9.8 mg/dL (8.3-10.6); Calcium (Corrected) 9.8 mg/dL (8.5-10.1); Carbon Dioxide 27.6 mMol/L (20.0-31.0); Chloride 101 mMol/L (98-107); Creatinine (Component) 0.6 mg/dL (0.6-1.3); Globulin 1.8 gm/dL (2.3-3.5); Glucose 84 mg/dL (74-106); Osmolality,Calculated 269 (275-295); Potassium 4.1 mMol/L (3.4-5.1); Sodium 136 mMol/L (136-145); Total Protein 6.2 gm/dL (5.7-8.2); eGFR > 60 See Note
[2025-08-18 08:36] LABS: Basophils # (Auto) 0.0 Thou/mm3 (0.0-0.2); Basophils % (Auto) 1 % (0-2.5); Eosinophils # (Auto) 0.2 Thou/mm3 (0.0-0.5); Eosinophils % (Auto) 3 % (0-10); Hematocrit 34.8 % (36.0-46.0); Hemoglobin 12.1 g/dL (12.0-16.0); Immature Granulocytes Auto 0.03 Thou/mm3 (0.00-0.00); Lymphocytes # (Auto) 0.8 Thou/mm3 (1.0-4.8); Lymphocytes % (Auto) 10 % (10-50); Mean Corpuscular HGB Conc 34.8 g/dl (31.0-37.0); Mean Corpuscular Hemoglobin 33.3 pg (25.0-35.0); Mean Corpuscular Volume 96 fL (80-100); Monocytes # (Auto) 0.6 Thou/mm3 (0.0-0.8); Monocytes % (Auto) 8 % (0-12); Neutrophils # (Auto) 5.9 Thou/mm3 (1.8-7.7); Neutrophils % (Auto) 79 % (37-80); Nucleated Red Blood Cell # 0.00 Thou/mm3 (0.00-0.00); Nucleated Red Blood Cell % 0 /100 WBC (0); Platelet Count 204 Thou/mm3 (140-440); RDW Standard Deviation 43.7 fL (36.4-46.3); Red Blood Count 3.63 Miln/mm3 (4.00-5.20); White Blood Count 7.5 Thou/mm3 (3.6-11.0)
[2025-08-18 08:58] LABS: Alanine Aminotransferase 10 U/L (10-49); Albumin, Serum 4.3 gm/dL (3.4-4.8); Albumin/Globulin Ratio 2.4 (1.2-2.2); Alkaline Phosphatase 45 U/L (46-116); Anion Gap 9 (7-16); Aspartate Amino Transferase 19 U/L (0-34); BUN/Creatinine Ratio 17 Ratio (12-20); Bilirubin,Total 0.5 mg/dL (0.3-1.2); Blood Urea Nitrogen 12 mg/dL (9-23); Calcium 9.1 mg/dL (8.3-10.6); Calcium (Corrected) 9.1 mg/dL (8.5-10.1); Carbon Dioxide 26.9 mMol/L (20.0-31.0); Chloride 98 mMol/L (98-107); Creatinine (Component) 0.7 mg/dL (0.6-1.3); Globulin 1.8 gm/dL (2.3-3.5); Glucose 82 mg/dL (74-106); Osmolality,Calculated 266 (275-295); Potassium 4.2 mMol/L (3.4-5.1); Sodium 134 mMol/L (136-145); Total Protein 6.1 gm/dL (5.7-8.2); eGFR > 60 See Note
[2025-08-25 08:53] LABS: Basophils # (Auto) 0.0 Thou/mm3 (0.0-0.2); Basophils % (Auto) 1 % (0-2.5); Eosinophils # (Auto) 0.2 Thou/mm3 (0.0-0.5); Eosinophils % (Auto) 4 % (0-10); Hematocrit 34.7 % (36.0-46.0); Hemoglobin 12.0 g/dL (12.0-16.0); Immature Granulocytes Auto 0.03 Thou/mm3 (0.00-0.00); Lymphocytes # (Auto) 0.7 Thou/mm3 (1.0-4.8); Lymphocytes % (Auto) 13 % (10-50); Mean Corpuscular HGB Conc 34.6 g/dl (31.0-37.0); Mean Corpuscular Hemoglobin 33.2 pg (25.0-35.0); Mean Corpuscular Volume 96 fL (80-100); Monocytes # (Auto) 0.5 Thou/mm3 (0.0-0.8); Monocytes % (Auto) 9 % (0-12); Neutrophils # (Auto) 3.7 Thou/mm3 (1.8-7.7); Neutrophils % (Auto) 73 % (37-80); Nucleated Red Blood Cell # 0.00 Thou/mm3 (0.00-0.00); Nucleated Red Blood Cell % 0 /100 WBC (0); Platelet Count 201 Thou/mm3 (140-440); RDW Standard Deviation 43.7 fL (36.4-46.3); Red Blood Count 3.61 Miln/mm3 (4.00-5.20); White Blood Count 5.1 Thou/mm3 (3.6-11.0)
[2025-08-25 09:24] LABS: Alanine Aminotransferase 14 U/L (10-49); Albumin, Serum 4.4 gm/dL (3.4-4.8); Albumin/Globulin Ratio 3.1 (1.2-2.2); Alkaline Phosphatase 44 U/L (46-116); Anion Gap 8 (7-16); Aspartate Amino Transferase 40 U/L (0-34); BUN/Creatinine Ratio 13 Ratio (12-20); Bilirubin,Total 0.4 mg/dL (0.3-1.2); Blood Urea Nitrogen 8 mg/dL (9-23); Calcium 8.8 mg/dL (8.3-10.6); Calcium (Corrected) 8.8 mg/dL (8.5-10.1); Carbon Dioxide 27.4 mMol/L (20.0-31.0); Chloride 99 mMol/L (98-107); Creatinine (Component) 0.6 mg/dL (0.6-1.3); Globulin 1.4 gm/dL (2.3-3.5); Glucose 87 mg/dL (74-106); Osmolality,Calculated 265 (275-295); Potassium 4.4 mMol/L (3.4-5.1); Sodium 134 mMol/L (136-145); Total Protein 5.8 gm/dL (5.7-8.2); eGFR > 60 See Note
[2025-08-31 13:27] LABS: Basophils # (Auto) 0.1 Thou/mm3 (0.0-0.2); Basophils % (Auto) 1 % (0-2.5); Eosinophils # (Auto) 0.1 Thou/mm3 (0.0-0.5); Eosinophils % (Auto) 2 % (0-10); Hematocrit 35.1 % (36.0-46.0); Hemoglobin 12.1 g/dL (12.0-16.0); Immature Granulocytes Auto 0.03 Thou/mm3 (0.00-0.00); Lymphocytes # (Auto) 0.7 Thou/mm3 (1.0-4.8); Lymphocytes % (Auto) 11 % (10-50); Mean Corpuscular HGB Conc 34.5 g/dl (31.0-37.0); Mean Corpuscular Hemoglobin 33.0 pg (25.0-35.0); Mean Corpuscular Volume 96 fL (80-100); Monocytes # (Auto) 0.4 Thou/mm3 (0.0-0.8); Monocytes % (Auto) 6 % (0-12); Neutrophils # (Auto) 4.9 Thou/mm3 (1.8-7.7); Neutrophils % (Auto) 80 % (37-80); Nucleated Red Blood Cell # 0.00 Thou/mm3 (0.00-0.00); Nucleated Red Blood Cell % 0 /100 WBC (0); Platelet Count 244 Thou/mm3 (140-440); RDW Standard Deviation 43.1 fL (36.4-46.3); Red Blood Count 3.67 Miln/mm3 (4.00-5.20); White Blood Count 6.2 Thou/mm3 (3.6-11.0)
[2025-08-31 13:45] LABS: Alanine Aminotransferase 12 U/L (10-49); Albumin, Serum 4.3 gm/dL (3.4-4.8); Albumin/Globulin Ratio 2.9 (1.2-2.2); Alkaline Phosphatase 46 U/L (46-116); Anion Gap 10 (7-16); Aspartate Amino Transferase 31 U/L (0-34); BUN/Creatinine Ratio 16 Ratio (12-20); Bilirubin,Total 0.6 mg/dL (0.3-1.2); Blood Urea Nitrogen 11 mg/dL (9-23); Calcium 8.9 mg/dL (8.3-10.6); Calcium (Corrected) 8.9 mg/dL (8.5-10.1); Carbon Dioxide 23.6 mMol/L (20.0-31.0); Chloride 98 mMol/L (98-107); Creatinine (Component) 0.7 mg/dL (0.6-1.3); Globulin 1.5 gm/dL (2.3-3.5); Glucose 77 mg/dL (74-106); Osmolality,Calculated 262 (275-295); Potassium 4.1 mMol/L (3.4-5.1); Sodium 132 mMol/L (136-145); Total Protein 5.8 gm/dL (5.7-8.2); eGFR > 60 See Note
[2025-09-05 11:20] LABS: Immunoglobulin G 604 mg/dL (600-1540); Kappa Light Chain, Free 23.9 mg/L (3.3-19.4); Lambda Light Chain, Free 3.8 mg/L (5.7-26.3)
[2025-09-06 06:18] LABS: Beta 2 Microglobulin 1.86 mg/L (< OR = 2.51); Immunoglobulin A 33 mg/dL (70-320); Immunoglobulin M 12 mg/dL (50-300); Kappa/Lambda, Free Ratio 6.29 (0.26-1.65)
[2025-09-06 13:52] LABS: Abnormal protein band 1 0.3 g/dL (NONE DETECTED); Albumin 3.9 g/dL (3.8-4.8); Alpha-1-Globulin 0.3 g/dL (0.2-0.3); Alpha-2-Globulin 0.7 g/dL (0.5-0.9); Beta-1-Globulin 0.4 g/dL (0.4-0.6); Beta-2-globulin 0.2 g/dL (0.2-0.5); Gamma Globulin 0.5 g/dL (0.8-1.7)
[2025-09-07 06:27] LABS: Protein, total, serum 5.9 g/dL (6.1-8.1)
== END 2025-09-02 23:59 | disposition home or self-care (01) ==
LOC: SCTC 08:00
PROVIDERS: PCP Family Medicine; Referring Provider Family Medicine; Visit Provider Internal Medicine Hematology & Oncology
DX: Z51.11 Encounter for antineoplastic chemotherapy (principal); C90.00 Multiple myeloma not having achieved remission; G89.29 Other chronic pain; D64.9 Anemia, unspecified; Z92.3 Personal history of irradiation
CPT/HCPCS: 36591; 80053; 82232; 82784; 83521; 84155; 84165; 85025; 86334; 96367; 96413; 96417; A4216; J1100; J1642; J3490; J7040; J7050; J9075

== ENCOUNTER 2025-09-22 08:03 | Outpatient (RCR) | payer MEDICARE, BC, SELFPAY ==
[2025-09-07 12:24] LABS: Basophils # (Auto) 0.1 Thou/mm3 (0.0-0.2); Basophils % (Auto) 1 % (0-2.5); Eosinophils # (Auto) 0.2 Thou/mm3 (0.0-0.5); Eosinophils % (Auto) 2 % (0-10); Hematocrit 34.4 % (36.0-46.0); Hemoglobin 12.0 g/dL (12.0-16.0); Immature Granulocytes Auto 0.03 Thou/mm3 (0.00-0.00); Lymphocytes # (Auto) 0.7 Thou/mm3 (1.0-4.8); Lymphocytes % (Auto) 10 % (10-50); Mean Corpuscular HGB Conc 34.9 g/dl (31.0-37.0); Mean Corpuscular Hemoglobin 33.2 pg (25.0-35.0); Mean Corpuscular Volume 95 fL (80-100); Monocytes # (Auto) 0.5 Thou/mm3 (0.0-0.8); Monocytes % (Auto) 7 % (0-12); Neutrophils # (Auto) 5.7 Thou/mm3 (1.8-7.7); Neutrophils % (Auto) 80 % (37-80); Nucleated Red Blood Cell # 0.00 Thou/mm3 (0.00-0.00); Nucleated Red Blood Cell % 0 /100 WBC (0); Platelet Count 233 Thou/mm3 (140-440); RDW Standard Deviation 43.3 fL (36.4-46.3); Red Blood Count 3.61 Miln/mm3 (4.00-5.20); White Blood Count 7.2 Thou/mm3 (3.6-11.0)
[2025-09-07 12:45] LABS: Alanine Aminotransferase 11 U/L (10-49); Albumin, Serum 4.4 gm/dL (3.4-4.8); Albumin/Globulin Ratio 2.9 (1.2-2.2); Alkaline Phosphatase 44 U/L (46-116); Anion Gap 8 (7-16); Aspartate Amino Transferase 26 U/L (0-34); BUN/Creatinine Ratio 23 Ratio (12-20); Bilirubin,Total 0.4 mg/dL (0.3-1.2); Blood Urea Nitrogen 14 mg/dL (9-23); Calcium 9.1 mg/dL (8.3-10.6); Calcium (Corrected) 9.1 mg/dL (8.5-10.1); Carbon Dioxide 26.6 mMol/L (20.0-31.0); Chloride 99 mMol/L (98-107); Creatinine (Component) 0.6 mg/dL (0.6-1.3); Globulin 1.5 gm/dL (2.3-3.5); Glucose 90 mg/dL (74-106); Osmolality,Calculated 268 (275-295); Potassium 4.2 mMol/L (3.4-5.1); Sodium 134 mMol/L (136-145); Total Protein 5.9 gm/dL (5.7-8.2); eGFR > 60 See Note
[2025-09-14 12:27] LABS: Basophils # (Auto) 0.1 Thou/mm3 (0.0-0.2); Basophils % (Auto) 1 % (0-2.5); Eosinophils # (Auto) 0.2 Thou/mm3 (0.0-0.5); Eosinophils % (Auto) 3 % (0-10); Hematocrit 36.3 % (36.0-46.0); Hemoglobin 12.5 g/dL (12.0-16.0); Immature Granulocytes Auto 0.02 Thou/mm3 (0.00-0.00); Lymphocytes # (Auto) 0.8 Thou/mm3 (1.0-4.8); Lymphocytes % (Auto) 13 % (10-50); Mean Corpuscular HGB Conc 34.4 g/dl (31.0-37.0); Mean Corpuscular Hemoglobin 33.0 pg (25.0-35.0); Mean Corpuscular Volume 96 fL (80-100); Monocytes # (Auto) 0.5 Thou/mm3 (0.0-0.8); Monocytes % (Auto) 8 % (0-12); Neutrophils # (Auto) 4.3 Thou/mm3 (1.8-7.7); Neutrophils % (Auto) 75 % (37-80); Nucleated Red Blood Cell # 0.00 Thou/mm3 (0.00-0.00); Nucleated Red Blood Cell % 0 /100 WBC (0); Platelet Count 235 Thou/mm3 (140-440); RDW Standard Deviation 43.5 fL (36.4-46.3); Red Blood Count 3.79 Miln/mm3 (4.00-5.20); White Blood Count 5.7 Thou/mm3 (3.6-11.0)
[2025-09-14 12:48] LABS: Alanine Aminotransferase 13 U/L (10-49); Albumin, Serum 4.5 gm/dL (3.4-4.8); Albumin/Globulin Ratio 2.5 (1.2-2.2); Alkaline Phosphatase 52 U/L (46-116); Anion Gap 10 (7-16); Aspartate Amino Transferase 28 U/L (0-34); BUN/Creatinine Ratio 14 Ratio (12-20); Bilirubin,Total 0.6 mg/dL (0.3-1.2); Blood Urea Nitrogen 10 mg/dL (9-23); Calcium 9.9 mg/dL (8.3-10.6); Calcium (Corrected) 9.9 mg/dL (8.5-10.1); Carbon Dioxide 25.6 mMol/L (20.0-31.0); Chloride 99 mMol/L (98-107); Creatinine (Component) 0.7 mg/dL (0.6-1.3); Globulin 1.8 gm/dL (2.3-3.5); Glucose 79 mg/dL (74-106); Osmolality,Calculated 268 (275-295); Potassium 4.0 mMol/L (3.4-5.1); Sodium 135 mMol/L (136-145); Total Protein 6.3 gm/dL (5.7-8.2); eGFR > 60 See Note
[2025-09-21 12:58] LABS: Basophils # (Auto) 0.0 Thou/mm3 (0.0-0.2); Basophils % (Auto) 1 % (0-2.5); Eosinophils # (Auto) 0.3 Thou/mm3 (0.0-0.5); Eosinophils % (Auto) 5 % (0-10); Hematocrit 37.0 % (36.0-46.0); Hemoglobin 12.7 g/dL (12.0-16.0); Immature Granulocytes Auto 0.01 Thou/mm3 (0.00-0.00); Lymphocytes # (Auto) 0.7 Thou/mm3 (1.0-4.8); Lymphocytes % (Auto) 13 % (10-50); Mean Corpuscular HGB Conc 34.3 g/dl (31.0-37.0); Mean Corpuscular Hemoglobin 32.5 pg (25.0-35.0); Mean Corpuscular Volume 95 fL (80-100); Monocytes # (Auto) 0.5 Thou/mm3 (0.0-0.8); Monocytes % (Auto) 9 % (0-12); Neutrophils # (Auto) 4.2 Thou/mm3 (1.8-7.7); Neutrophils % (Auto) 73 % (37-80); Nucleated Red Blood Cell # 0.00 Thou/mm3 (0.00-0.00); Nucleated Red Blood Cell % 0 /100 WBC (0); Platelet Count 240 Thou/mm3 (140-440); RDW Standard Deviation 43.5 fL (36.4-46.3); Red Blood Count 3.91 Miln/mm3 (4.00-5.20); White Blood Count 5.8 Thou/mm3 (3.6-11.0)
[2025-09-21 13:15] LABS: Alanine Aminotransferase 12 U/L (10-49); Albumin, Serum 4.5 gm/dL (3.4-4.8); Albumin/Globulin Ratio 2.8 (1.2-2.2); Alkaline Phosphatase 51 U/L (46-116); Anion Gap 9 (7-16); Aspartate Amino Transferase 27 U/L (0-34); BUN/Creatinine Ratio 20 Ratio (12-20); Bilirubin,Total 0.4 mg/dL (0.3-1.2); Blood Urea Nitrogen 14 mg/dL (9-23); Calcium 9.4 mg/dL (8.3-10.6); Calcium (Corrected) 9.4 mg/dL (8.5-10.1); Carbon Dioxide 27.0 mMol/L (20.0-31.0); Chloride 100 mMol/L (98-107); Creatinine (Component) 0.7 mg/dL (0.6-1.3); Globulin 1.6 gm/dL (2.3-3.5); Glucose 92 mg/dL (74-106); Osmolality,Calculated 272 (275-295); Potassium 4.1 mMol/L (3.4-5.1); Sodium 136 mMol/L (136-145); Total Protein 6.1 gm/dL (5.7-8.2); eGFR > 60 See Note
== END 2025-10-02 23:59 | disposition home or self-care (01) ==
LOC: SCTC 08:03
PROVIDERS: PCP Family Medicine; Referring Provider Family Medicine; Visit Provider Internal Medicine Hematology & Oncology
DX: Z51.11 Encounter for antineoplastic chemotherapy (principal); C90.01 Multiple myeloma in remission
CPT/HCPCS: 36591; 80053; 85025; 96367; 96413; A4216; J1100; J1642; J3490; J7040; J7050; J9075

== ENCOUNTER 2025-10-31 07:25 | Emergency (ER) | payer MEDICARE, BC, SELFPAY ==
[2025-10-31 07:33] VITALS: BP 196/98; PULSE 95; RESP 18; TEMP 36.7; O2SAT 97; BMI 19.5
--- NOTE | 2025-10-31 07:42 | XR_ITS ---
Examination: Shoulder, left, 3 views Technique: Shoulder AP internal rotation, AP external rotation, Y view shoulder, 3 views Exam date and time : October 31, 2025, 0750 hours INDICATIONS: Left shoulder pain this week, known diagnosis multiple myeloma FINDINGS: Severe osteopenia 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, 5.8 cm in cephalocaudad dimension and transverse dimension 2.2 cm Pathologic fracture through the proximal humerus without significant displacement No shoulder dislocation IMPRESSION: Pathologic fracture proximal humerus with large osteolytic multiple myeloma lesion involving the proximal humerus
--- NOTE | 2025-10-31 07:42 | PD.EDRME ---
Rapid Medical Screening Exam RME Arrival date/time: 10/31/25 07:25 84-year-old female with a history of multiple myeloma, hypertension presents to the emergency room with a chief complaint of left shoulder tenderness and elevated blood pressure readings I have greeted and performed a focused initial assessment of this patient. A comprehensive ED assessment and evaluation of the patient, analysis of all test results, and completion of the medical decision making process will be conducted by additional ED providers. Chief Complaint: Extremity Injury, Upper Time Seen by Provider: 10/31/25 07:32 Vital signs: Vital Signs Temperature 98.0 F 10/31/25 07:33 Pulse Rate 95 10/31/25 07:33 Respiratory Rate 18 10/31/25 07:33 Blood Pressure 196/98 H 10/31/25 07:33 Pulse Oximetry (%) 97 10/31/25 07:33 Oxygen Delivery Method Room Air 10/31/25 07:33 Vital signs reviewed by provider: Yes Exam: Tenderness to the left AC joint with palpation Clear bilateral lung sounds Clinical Impression: Shoulder pain
[2025-10-31] MEDS: KETOROLAC INJ 60 MG/2 ML VIAL 30 MG IM (07:49)
[2025-10-31 08:30] LABS: Basophils # (Auto) 0.0 Thou/mm3 (0.0-0.2); Basophils % (Auto) 1 % (0-2.5); Eosinophils # (Auto) 0.2 Thou/mm3 (0.0-0.5); Eosinophils % (Auto) 5 % (0-10); Hematocrit 39.4 % (36.0-46.0); Hemoglobin 13.1 g/dL (12.0-16.0); Immature Granulocytes Auto 0.03 Thou/mm3 (0.00-0.00); Lymphocytes # (Auto) 0.5 Thou/mm3 (1.0-4.8); Lymphocytes % (Auto) 11 % (10-50); Mean Corpuscular HGB Conc 33.2 g/dl (31.0-37.0); Mean Corpuscular Hemoglobin 32.3 pg (25.0-35.0); Mean Corpuscular Volume 97 fL (80-100); Monocytes # (Auto) 0.3 Thou/mm3 (0.0-0.8); Monocytes % (Auto) 6 % (0-12); Neutrophils # (Auto) 3.9 Thou/mm3 (1.8-7.7); Neutrophils % (Auto) 77 % (37-80); Nucleated Red Blood Cell # 0.00 Thou/mm3 (0.00-0.00); Nucleated Red Blood Cell % 0 /100 WBC (0); Platelet Count 236 Thou/mm3 (140-440); RDW Standard Deviation 45.9 fL (36.4-46.3); Red Blood Count 4.05 Miln/mm3 (4.00-5.20); White Blood Count 5.0 Thou/mm3 (3.6-11.0)
[2025-10-31 08:41] LABS: Alanine Aminotransferase 30 U/L (10-49); Albumin, Serum 4.6 gm/dL (3.4-4.8); Albumin/Globulin Ratio 1.8 (1.2-2.2); Alkaline Phosphatase 67 U/L (46-116); Anion Gap 7 (7-16); Aspartate Amino Transferase 33 U/L (0-34); BUN/Creatinine Ratio 18 Ratio (12-20); Bilirubin,Total 0.7 mg/dL (0.3-1.2); Blood Urea Nitrogen 14 mg/dL (9-23); Calcium 9.7 mg/dL (8.3-10.6); Calcium (Corrected) 9.7 mg/dL (8.5-10.1); Carbon Dioxide 29.8 mMol/L (20.0-31.0); Chloride 99 mMol/L (98-107); Creatinine (Component) 0.8 mg/dL (0.6-1.3); Estimated Creatinine Clearance 38.2 mL/min (>60); Globulin 2.6 gm/dL (2.3-3.5); Glucose 97 mg/dL (74-106); Lipase 39 U/L (12-53); Osmolality,Calculated 272 (275-295); Potassium 4.2 mMol/L (3.4-5.1); Sodium 136 mMol/L (136-145); Total Protein 7.2 gm/dL (5.7-8.2); eGFR > 60 See Note
[2025-10-31 09:47] VITALS: BP 184/86; PULSE 81; RESP 18; TEMP 37.1; O2SAT 99
--- NOTE | 2025-10-31 09:51 | PD.EDEXREM ---
ED Extremity Problem RME/HPI General Chief complaint: Extremity Injury, Upper Stated complaint: PAIN L) SHOULDER Time Seen by Provider: 10/31/25 07:32 Arrival date/time: 10/31/25 07:25 Limitations: no limitations RME / HPI RME / HPI Narrative: 10/31/25 07:25 84-year-old female with a history of multiple myeloma, hypertension presents to the emergency room with a chief complaint of left shoulder tenderness and elevated blood pressure readings I have greeted and performed a focused initial assessment of this patient. A comprehensive ED assessment and evaluation of the patient, analysis of all test results, and completion of the medical decision making process will be conducted by additional ED providers. DR. MOLINA MAIN ED EVALUATION: 84 year old female with history of multiple myeloma diagnosed in 2013, s/p radiation therapy, hypertension presents to the ED for evaluation of left shoulder pain beginning several days ago without injury or trauma. Pain described as aching in sensation that is located most to the left shoulder, without radiation, rating 10/10 in severity. States she has taken two [place] 5-325mg without relief. Patient reports she has consulted her PCP who has ordered an MRI of the left shoulder that is scheduled for tomorrow. No other associated symptoms or complaints reported. Patient mentioned since being diagnosed with multiple myeloma, most of the pain has been to her back. Exam: Tenderness to the left AC joint with palpation Clear bilateral lung sounds Impression: Shoulder pain Related Data Home Medications ?Medication ?Instructions ?Recorded ?Confirmed acyclovir 400 mg tablet 400 mg PO BID 08/01/20 06/16/25 aspirin 81 mg tablet,delayed 81 mg PO QDAY 08/01/20 06/16/25 release gabapentin 300 mg tablet 600 mg PO TID 08/01/20 06/16/25 lisinopril 5 mg tablet 5 mg PO QDAY 08/01/20 06/16/25 Previous Rx's ?Medication ?Instructions ?Recorded hydromorphone 2 mg tablet 2 mg PO Q12H bone pain #14 tabs 10/31/25 (Dilaudid) Allergies Allergy/AdvReac Type Severity Reaction Status Date / Time prochlorperazine Allergy Unknown Verified 10/31/25 07:30 Review of Systems Review of Systems Systems Reviewed: All systems reviewed, normal except as documented Past Medical History Past Medical History CARDIAC: Positive Cardiac Disorders and Hypertension GASTROINTESTINAL: Positive Gastrointestinal Disorders REPRODUCTIVE: Positive Previous Pregnancies (2) MUSCULOSKELETAL: Positive Musculoskeletal Disorders and Bone Cancer (low) ENT: Positive Cataracts (marquis) HEMATOLOGIC: Positive Blood Disorders (multiple myeloma), Anemia and Clotting Problems (risk from medication,) OTHER HISTORY: Positive Hospitalization, Chemotherapy, Radiation Therapy, Chicken Pox, Measles and Cancer (multiple myeloma) Family History FAMILY HISTORY: Positive Family Cancer (mother-Pancreatic, liver) and Family Surgery Surgical History SURGICAL: Positive Abdominal Surgery, Bowel Surgery, Joint Replacement and Hysterectomy Social History SMOKING STATUS: Never smoker ED Exam General Limitations: Present no limitations General appearance: Present alert and in no apparent distress Head Head exam: Present atraumatic, normocephalic and normal inspection Eye Eye exam: Present normal appearance, PERRL and EOMI ENT ENT exam: Present normal exam, normal oropharynx and mucous membranes moist Neck Neck exam: Present normal inspection, full ROM and trachea midline Chest Chest inspection: Present normal inspection and symmetric chest wall rise Respiratory Respiratory exam: Present normal lung sounds bilaterally Cardiovascular Cardiovascular exam: Present regular rate, normal rhythm and normal heart sounds Extremities Exam Extremities exam: Present other (Left shoulder with no deformity, left wrist with normal pulse ) Back Exam Back exam: Present normal inspection and full ROM Neurological Exam Neurological exam: Present alert, oriented X3 and CN II-XII intact Psychiatric Psychiatric exam: Present normal affect and normal mood Skin Skin exam: Present warm, dry, intact and normal color Course Quality Measures none Orders Category Date Time Status sling [Splint / Immobilizer] STAT Care 10/31/25 09:59 Completed XR shoulder LT min 2V Stat Exams 10/31/25 07:42 Completed CBC Stat Lab 10/31/25 08:08 Completed CMP [Comprehensive Metabolic Panel] Stat Lab 10/31/25 08:08 Completed Lipase Stat Lab 10/31/25 08:08 Completed UA [Urinalysis] Stat Lab 10/31/25 07:42 Ordered Urine Culture Stat Lab 10/31/25 07:42 Ordered Hydromorphone HCl [Dilaudid] Med 10/31/25 09:58 Discontinued 2 mg PO X1 ONE Ketorolac Inj [Toradol Inj] Med 10/31/25 07:42 Discontinued 30 mg IM X1 ONE Vital Signs Vital signs: Vital Signs Temperature 98.0 F 10/31/25 07:33 Pulse Rate 95 10/31/25 07:33 Respiratory Rate 18 10/31/25 07:33 Blood Pressure 196/98 H 10/31/25 07:33 Pulse Oximetry (%) 97 10/31/25 07:33 Oxygen Delivery Method Room Air 10/31/25 07:33 Pulse ox is 97% on room air which is adequate. Extremity Problem MDM Narrative MDM Narrative:: Vera Stanton am scribing for and in the presence of Dr. Molina. Patient remains clinically stable throughout the emergency department visit. In the ED, she was given 2mg PO Dilaudid with improvement. We reviewed all the results, analysis, and treatment plans. Patient is amenable to discharge. Strict return precautions were outlined. Patient data External records reviewed:: [facility] previous records Clinical information provided by:: patient Social determinants that could affect healthcare access:: none Patient has the following chronic illnesses:: multiple myeloma diagnosed in 2013, s/p radiation therapy, hypertension How is presenting disease/condition affected by chronic disease/condition?: exacerbated by Evaluation data The following diagnostics were reviewed and interpreted by me:: lab results and radiology exam(s) Lab and/or radiology exams considered but not ordered:: None Interpretation Summary: Ordering Physician: Anibal Cummings Date of Service: 10/31/25 Procedure(s): XR shoulder LT min 2V Accession Number(s): [id number] cc: Anibal Cummings; Melquiades Lyn MD; Bhaskar Bueno MD~ Examination: Shoulder, left, 3 views Technique: Shoulder AP internal rotation, AP external rotation, Y view shoulder, 3 views Exam date and time : October 31, 2025, 0750 hours INDICATIONS: Left shoulder pain this week, known diagnosis multiple myeloma FINDINGS: Severe osteopenia 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, 5.8 cm in cephalocaudad dimension and transverse dimension 2.2 cm Pathologic fracture through the proximal humerus without significant displacement No shoulder dislocation IMPRESSION: Pathologic fracture proximal humerus with large osteolytic multiple myeloma lesion involving the proximal humerus Dictated By: Melquiades Lyn MD Signed By: <Electronically signed by Melquiades Lyn MD in [place]> 10/31/25 0819 Medications / Prescriptions Medications or Prescriptions considered but not ordered:: None Medication administrations:: Medication Administration History Discontinued Medications Hydromorphone HCl (Hydromorphone Hcl 2 Mg Tablet) 2 mg PO X1 ONE Stop: 10/31/25 09:59 Last Admin: 10/31/25 10:10 Dose: 2 mg Documented By: CORONA Ketorolac Tromethamine (Ketorolac Inj 60 Mg/2 Ml Vial) 30 mg IM X1 ONE Stop: 10/31/25 07:43 Last Admin: 10/31/25 07:49 Dose: 30 mg Documented By: VG See above Consultations Consultation(s) initiated? (list below): No Diagnosis Most likely diagnosis given after review of the tests above:: Pathologic fracture Left shoulder pain Multiple Myeloma Admission Indicated Admission indicated?: not indicated Admission Request Was there a request for admission?: No Disposition Plan Disposition Plan: Discharge Discharge Attestation Discharge Attestation: The patient and all family members were given an opportunity to ask questions and understood the discharge instructions. Discharge instructions specifically effects, indications for sooner follow up or return to the emergency department, and the expected course of current diagnosis. Patient condition: Stable Discharge Plan Plan Patient Disposition: HOME (Self Care) Patient condition on transfer: Stable Prescriptions/Referrals Prescriptions/Med Rec: New hydromorphone [Dilaudid] 2 mg tablet 2 mg PO Q12H MDD 2 Qty: 14 0RF No Action acyclovir 400 mg Tablet 400 mg PO BID lisinopril 5 mg Tablet 5 mg PO QDAY gabapentin 300 mg Tablet 600 mg PO TID aspirin 81 mg Tablet,Delayed Release (Dr/Ec) 81 mg PO QDAY Referrals: Bhaskar Bueno MD [Primary Care Provider, Family Practice] - In 1 week Problem List Clinical Impression: Pathologic fracture, Left shoulder pain, Multiple myeloma Patient/Caregiver Discharge Instructions Discharge Activity: activity as tolerated Education Materials: Understanding the Pain Response, Medicine for Pain Additional Instructions: Follow-up with your oncologist in 1 to 2 days. You have been prescribed Dilaudid for pain. You may want to start by taking half a tablet every 8 hours as needed for pain. We are having you wear a sling on your left arm because you have a nondisplaced fracture in the left shoulder which is probably a pathologic fracture due to your myeloma. Print Language: Polish Stand Alone Forms: Lindsey Award Info., Patient Portal Info Letter
[2025-10-31] MEDS: HYDROMORPHONE HCL 2 MG TABLET PO (10:10)
[2025-10-31 10:45] VITALS: BP 176/84; PULSE 94; RESP 18; O2SAT 99
== END 2025-10-31 11:13 | disposition home or self-care (01) ==
PROVIDERS: Nurse Practitioner Family; Emergency Provider Family Medicine; PCP Family Medicine
DX: M84.522A Pathological fracture in neoplastic disease, left humerus, initial encounter for fracture (principal); C90.00 Multiple myeloma not having achieved remission
CPT/HCPCS: 36415; 73030; 80053; 81001; 83690; 85025; 87086; 96372; 99283; J1885; A9270

== ENCOUNTER 2025-11-01 07:57 | Outpatient (RCR) | payer MEDICARE, BC, SELFPAY ==
[2025-10-03 16:43] LABS: Basophils # (Auto) 0.1 Thou/mm3 (0.0-0.2); Basophils % (Auto) 1 % (0-2.5); Eosinophils # (Auto) 0.2 Thou/mm3 (0.0-0.5); Eosinophils % (Auto) 4 % (0-10); Hematocrit 37.1 % (36.0-46.0); Hemoglobin 12.3 g/dL (12.0-16.0); Immature Granulocytes Auto 0.02 Thou/mm3 (0.00-0.00); Lymphocytes # (Auto) 0.6 Thou/mm3 (1.0-4.8); Lymphocytes % (Auto) 12 % (10-50); Mean Corpuscular HGB Conc 33.2 g/dl (31.0-37.0); Mean Corpuscular Hemoglobin 31.7 pg (25.0-35.0); Mean Corpuscular Volume 96 fL (80-100); Monocytes # (Auto) 0.5 Thou/mm3 (0.0-0.8); Monocytes % (Auto) 9 % (0-12); Neutrophils # (Auto) 3.8 Thou/mm3 (1.8-7.7); Neutrophils % (Auto) 73 % (37-80); Nucleated Red Blood Cell # 0.00 Thou/mm3 (0.00-0.00); Nucleated Red Blood Cell % 0 /100 WBC (0); Platelet Count 245 Thou/mm3 (140-440); RDW Standard Deviation 43.3 fL (36.4-46.3); Red Blood Count 3.88 Miln/mm3 (4.00-5.20); White Blood Count 5.3 Thou/mm3 (3.6-11.0)
[2025-10-03 17:17] LABS: Alanine Aminotransferase 13 U/L (10-49); Albumin, Serum 4.5 gm/dL (3.4-4.8); Albumin/Globulin Ratio 2.3 (1.2-2.2); Alkaline Phosphatase 54 U/L (46-116); Anion Gap 12 (7-16); Aspartate Amino Transferase 27 U/L (0-34); BUN/Creatinine Ratio 19 Ratio (12-20); Bilirubin,Total 0.5 mg/dL (0.3-1.2); Blood Urea Nitrogen 13 mg/dL (9-23); Calcium 9.6 mg/dL (8.3-10.6); Calcium (Corrected) 9.6 mg/dL (8.5-10.1); Carbon Dioxide 25.5 mMol/L (20.0-31.0); Chloride 100 mMol/L (98-107); Creatinine (Component) 0.7 mg/dL (0.6-1.3); Globulin 2.0 gm/dL (2.3-3.5); Glucose 86 mg/dL (74-106); Osmolality,Calculated 272 (275-295); Potassium 3.9 mMol/L (3.4-5.1); Sodium 137 mMol/L (136-145); Total Protein 6.5 gm/dL (5.7-8.2); eGFR > 60 See Note
[2025-10-10 19:52] LABS: Abnormal protein band 1 0.4 g/dL (NONE DETECTED); Albumin 4.1 g/dL (3.8-4.8); Alpha-1-Globulin 0.2 g/dL (0.2-0.3); Alpha-2-Globulin 0.7 g/dL (0.5-0.9); Beta-1-Globulin 0.3 g/dL (0.4-0.6); Beta-2-globulin 0.2 g/dL (0.2-0.5); Gamma Globulin 0.6 g/dL (0.8-1.7)
[2025-10-11 07:38] LABS: Basophils # (Auto) 0.1 Thou/mm3 (0.0-0.2); Basophils % (Auto) 1 % (0-2.5); Eosinophils # (Auto) 0.3 Thou/mm3 (0.0-0.5); Eosinophils % (Auto) 6 % (0-10); Hematocrit 35.6 % (36.0-46.0); Hemoglobin 12.2 g/dL (12.0-16.0); Immature Granulocytes Auto 0.03 Thou/mm3 (0.00-0.00); Lymphocytes # (Auto) 0.7 Thou/mm3 (1.0-4.8); Lymphocytes % (Auto) 13 % (10-50); Mean Corpuscular HGB Conc 34.3 g/dl (31.0-37.0); Mean Corpuscular Hemoglobin 33.1 pg (25.0-35.0); Mean Corpuscular Volume 97 fL (80-100); Monocytes # (Auto) 0.5 Thou/mm3 (0.0-0.8); Monocytes % (Auto) 10 % (0-12); Neutrophils # (Auto) 3.4 Thou/mm3 (1.8-7.7); Neutrophils % (Auto) 69 % (37-80); Nucleated Red Blood Cell # 0.00 Thou/mm3 (0.00-0.00); Nucleated Red Blood Cell % 0 /100 WBC (0); Platelet Count 210 Thou/mm3 (140-440); RDW Standard Deviation 44.5 fL (36.4-46.3); Red Blood Count 3.69 Miln/mm3 (4.00-5.20); White Blood Count 4.9 Thou/mm3 (3.6-11.0)
[2025-10-11 07:40] LABS: Protein, total, serum 6.2 g/dL (6.1-8.1)
[2025-10-11 08:02] LABS: Alanine Aminotransferase 11 U/L (10-49); Albumin, Serum 4.0 gm/dL (3.4-4.8); Albumin/Globulin Ratio 1.9 (1.2-2.2); Alkaline Phosphatase 50 U/L (46-116); Anion Gap 8 (7-16); Aspartate Amino Transferase 32 U/L (0-34); BUN/Creatinine Ratio 20 Ratio (12-20); Bilirubin,Total 0.6 mg/dL (0.3-1.2); Blood Urea Nitrogen 12 mg/dL (9-23); Calcium 8.7 mg/dL (8.3-10.6); Calcium (Corrected) 8.7 mg/dL (8.5-10.1); Carbon Dioxide 27.1 mMol/L (20.0-31.0); Chloride 101 mMol/L (98-107); Creatinine (Component) 0.6 mg/dL (0.6-1.3); Globulin 2.1 gm/dL (2.3-3.5); Glucose 97 mg/dL (74-106); Osmolality,Calculated 271 (275-295); Potassium 4.1 mMol/L (3.4-5.1); Sodium 136 mMol/L (136-145); Total Protein 6.1 gm/dL (5.7-8.2); eGFR > 60 See Note
[2025-10-11 08:48] LABS: Immunoglobulin G 706 mg/dL (600-1540); Kappa Light Chain, Free 28.7 mg/L (3.3-19.4); Lambda Light Chain, Free 5.9 mg/L (5.7-26.3)
[2025-10-12 06:28] LABS: Beta 2 Microglobulin 2.04 mg/L (< OR = 2.51); Immunoglobulin A 39 mg/dL (70-320); Immunoglobulin M 13 mg/dL (50-300); Kappa/Lambda, Free Ratio 4.86 (0.26-1.65)
--- NOTE | 2025-10-18 07:10 | CTCFLWUP_ITS ---
Patient: MAIA GUZMAN : 1940 Page 2 of 2 FOLLOW UP NOTE DATE OF SERVICE: 10/17/2025 NAME: MAIA GUZMAN ACCOUNT: [id number] : 1940 AGE: 84 INTERVAL HISTORY: Patient is on modified dose of cyclophosphamide and dexamethasone. Patient was unable to complete her PET/CT scan at [place] and requesting to be repeated here. Patient was lifting a mattress at the house and since then have pain in the left shoulder. Patient have restricted range of motion. She says she is having excruciating pain in her shoulder which is radiating to the back. Patient refuses to go to the emergency room summary ONCOLOGY HISTORY:?Cl[facility] Oncology Hx? DIAGNOSIS: Multiple myeloma in remission [ICD10] C90.01 DATE OF DIAGNOSIS: 2014 STAGE/TNM: myeloma TREATMENT HISTORY: Care?Plan Start?Date Cycle Day Intent KYPROLIS?MAINT?#2 05/24/2015 1 28 Palliative KYPROLIS?20mg/m*2?MAINT 01/21/2017 1 28 Palliative KYPROLIS?MAINT 07/23/2017 1 28 Palliative KYPROLIS?MAINT?#2 07/22/2017 1 28 Palliative KYPROLIS?MAINT 01/13/2018 1 28 Definitive DARatumumab?Weekly?douglas 02/01/2021 1 7 Palliative DARatumumab?Every?2?weeks 04/30/2021 1 14 Palliative DARatumumab?q?2?weeks 04/30/2021 1 14 Palliative DARAtumumab?q?4?weeks 09/20/2021 1 28 Palliative DARAtumumab?every?4?weeks 04/22/2023 11 28 Palliative Elotuzumab?cy?1and2?and?3+ 03/15/2024 1 28 Palliative Bortezomib?1.3?mg/m*2?SQ,?Rx?Dex?40?mg?Weekly?-?Trnsp,?Salv 09/27/2024 1 21 Palliative VCd?dose?reduced?multiple?myeloma 11/08/2024 1 21 Palliative VENOfer?200mg?IV?wkly?for?10?weeks 02/02/2025 1 70 Maintenance HISTORY OF PRESENT ILLNESS: Maia Guzman is a 84-year-old female with following history. 05/16/2014: MRI without contrast showed suspicious lesions for metastatic disease. 05/17/2014: MRI showed fracture of the vertebra with bilateral lower extremity weakness. 05/20/2014: she had T1-T5 fusion, T2 corpectomy, tumor resection, laminectomy and decompression at [place]. Frozen sections showed myeloma. 05/23/2014: Bone marrow biopsy showed 34% plasma cells. FISH testing showed multiple chromosomal abnormalities. 06/25/2014: Patient was started on cyclophosphamide, bortezomib and Decadron. 07/15/2014: Single fraction of palliative radiation therapy was delivered to spine from T12-L5 for 800 cGy. 08/08/2014-09/01/2014 the patient received 2 more cycles of cyclophosphamide and bortezomib. Following that Velcade was held due to worsening neuropathy. Since then patient has been on Kyprolis as well as Revlimid. 05/24/2015: Patient was started on Kyprolis here in [place]. Her last Kyprolis was given on 04/29/2018. 01/28/2018: Patient received last dose of Zometa. May 2018: Patient continued on maintenance Revlimid. 11/09/2020: PET CT scan was done at [place]? 12/19/2020: Whole body MRI scans done at [place]? 12/25/2020: IgG 917, kappa light chains 48.7. 02/01/2021: Patient is started on daratumumab, Pomalyst and steroids. 05/21/2021: [place] light chain 25.9, IgG 474. 09/18/2021: [place] light chain 32.6, IgG 464, 11/20/2021: PET/CT scan? 12/19/2021: Free kappa light chain 21.2, IgG 470. 03/18/2022: Free kappa light chain 23.9, IgG 419. 06/24/2022 IgG 450. Free kappa light chain 23.3. 09/16/2022: IgG 453, free kappa light chain 20.0 12/11/2022: Ms. Guzman had radiation therapy to the left frontal bone at [place] for a PET scan documented enlarging lesion. 12/18/2022: IgG 468, free kappa light chains 26.4. Beta-2 microglobulin 1.83. Immunofixation study revealed 1 trace concentration band migrating in the gamma region. 03/18/2023: IgG 453 (600?1540), beta-2 microglobulin 2.0. 06/18/2023: IgG 509, kappa light chains 24.5. 2 microglobulin 1.92. Abnormal protein band 0.2. 09/17/2023: IgG 555, kappa light chains 26.6. 12/17/2023: IgG 618, kappa light chains 42. 01/19/2024: IgG 779, kappa light chains 47.8. 02/13/2024: PET/CT scan was done at [place] 02/16/2024: IgG 840, kappa light chains 50.8. Abnormal protein band 0.4 OTHER MEDICAL HISTORY/CONDITIONS: FAMILY HISTORY: ?Clone Family Hx? 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 acyclovir - 400 mg Twice a Day 2. aspirin - 81 mg 1 tab Daily 3. cyclobenzaprine - 5 mg 1 tab Daily 4. gabapentin - 300 mg 3 Capsule 3 capsules three times daily 5. lisinopril - 5 mg 1 tab Daily?[place] Meds? Medications Last Reconciled by Niecy Hopkins MD on 10/17/2025 ALLERGIES: Compazine REVIEW OF SYSTEMS: A complete 14-point review of systems was performed and is negative except as noted in interval history. PHYSICAL EXAMINATION:?CloneBlock PE? VITAL SIGNS: Temperature?98.1, B/P?182/93, Oxygen?Saturation?97% Weight?101?lbs (Change?since?10/11/25:?-1.6?lbs) PAIN: 4 - Moderate pain ECOG Performance Status: 3 - Symptomatic; limited self-care; spends >50% of time in bed, not bedridden GENERAL APPEARANCE: Appears well, in no apparent distress, appropriately interactive. HEENT: Normocephalic, no temporal wasting, normal conjunctiva, no scleral icterus, normal hearing, lips without lesions, neck normal range of motion. CARDIOVASCULAR: Not assessed. PULMONARY: Normal respiratory effort, no respiratory distress or use of accessory muscles, speaking in full sentences, no tachypnea. EXTREMITIES: No pedal edema or cyanosis. Restricted range of motion in the left shoulder SKIN: Normal skin appearance. NEUROLOGIC: Alert and oriented x4. PSHYCHIATRIC: Appropriate affect, mood normal, behavior normal, intact thought and speech. LABORATORY DATA: I have personally reviewed and interpreted each of the patient?s relevant lab tests, abnormal findings are below: Date 10/03/25 10/11/25 ??WHITE?BLOOD?COUNT?(Thou/mm3) 5.3 4.9 ??RED?BLOOD?COUNT?(Miln/mm3) 3.88?L 3.69?L ??HEMOGLOBIN?(gm/dl) 12.3 12.2 ??HEMATOCRIT?(%) 37.1 35.6?L ??PLATELET?COUNT?(Thou/mm3) 245 210 ??NEUTROPHILS?%,?AUTO?(%) 73 69 ??LYMPH?%,?AUTO?(%) 12 13 ??NEUTROPHILS,?AUTO?(Thou/mm3) 3.8 3.4 ??GLUCOSE,RANDOM?(mg/dL) 86 97 ??BLOOD?UREA?NITROGEN?(mg/dL) 13 12 ??CREATININE?(mg/dL) 0.70 0.60 ??SODIUM?(mmol/L) 137 136 ??POTASSIUM?(mmol/L) 3.9 4.1 ??CHLORIDE?(mmol/L) 100 101 ??CrCl?(CandG)?(ml/min) 43.52 50.87 ??AST/SGOT?(Unit/L) 27 32 ??ALT/SGPT?(Unit/L) 13 11 ??ALKALINE?PHOSPHATASE?(Unit/L) 54 50 ??BILIRUBIN,?TOTAL?(mg/dL) 0.5 0.6 ??PROTEIN?TOTAL?(gm/dl) 6.5 6.1 ??ALBUMIN,?SERUM?(gm/dl) 4.5 4.0 ??GLOBULIN?(gm/dl) 2.0?L 2.1?L ??ALBUMIN/GLOBULIN?RATIO 2.3?H 1.9 ??CALCIUM,?SERUM?(mg/dL) 9.6 8.7 ??CALCIUM?SERUM?(CORRECTED)?(mg/dL) 9.6 8.7 ASSESSMENT/PLAN:?Wayne Silveira Assessment/Plan? stage III IgG G kappa myeloma Pain is better controlled now. She says she have no new pain. Her chronic pain in the back is the only 1 and is well-controlled. Patient's kappa lambda chain have been decreasing Patient's M protein has also decreased S/p radiation therapy to the left frontal bone lesion which was enlarging on the PET scan. Patient received radiation therapy at [place]. Patient s/p radiation to rib On cyclophosamide low dose and dexamethasone reduced dose Patient have not had staging imaging Will get PET CT scan to see stability Anemia Transfusion and iron infusion was done Repeat iron and vitamin level Hb improved Left shoulder pain and restricted range of motion concern for pathological fracture Will get MRI of the left shoulder Will plan for radiation once MRI is complete Patient have gabapentin and do not want to take any other medicine Small dose of Flexeril 5 mg ordered to be used once every 12 hours as needed ORDERS: Order # Description [id number] PET/CT of Skull to mid-thigh for Restaging [id number] MRI + With Contrast RETURN TO CLINIC: I reviewed the diagnosis, prognosis, and recommended treatment/procedure options with the patient (and/or their legal advertising account representative), including the potential benefits, risks, side effects and alternative therapies. We also discussed the option of no treatment and the possibility of clinical trial participation, if applicable. All questions were addressed, and they demonstrated understanding. They provided informed consent to proceed with the proposed plan of care. BILLING AND COMPLIANCE: I reviewed external records from providers outside my specialty as summarized above. I spent a total of 50 minutes on this patient?s care on the day of their visit excluding time spent related to any billed procedures. This time includes time spent with the patient as well as time spent documenting in the medical record, reviewing patients records and tests, obtaining history, placing orders, communicating with other healthcare professionals, counseling the patient, family or caregiver, and/or care coordination for the diagnoses above. Electronically Signed by: Stu Silveira MD T: 7:07 AM CC: Bhaskar?Myles,? PCP: Bhaskar Bueno Referring: Bhaskar Bueno This document was completed utilizing speech recognition software. Grammatical errors, random word insertions, pronoun errors, and incomplete sentences are an occasional consequence of this system due to software limitations, ambient noise, and hardware issues. Any formal questions or concerns about the content, text or information contained within the body of this dictation should be directly addressed to the provider for clarification.
[2025-10-18 08:03] LABS: Basophils # (Auto) 0.0 Thou/mm3 (0.0-0.2); Basophils % (Auto) 1 % (0-2.5); Eosinophils # (Auto) 0.2 Thou/mm3 (0.0-0.5); Eosinophils % (Auto) 4 % (0-10); Hematocrit 37.4 % (36.0-46.0); Hemoglobin 12.4 g/dL (12.0-16.0); Immature Granulocytes Auto 0.03 Thou/mm3 (0.00-0.00); Lymphocytes # (Auto) 0.6 Thou/mm3 (1.0-4.8); Lymphocytes % (Auto) 12 % (10-50); Mean Corpuscular HGB Conc 33.2 g/dl (31.0-37.0); Mean Corpuscular Hemoglobin 32.1 pg (25.0-35.0); Mean Corpuscular Volume 97 fL (80-100); Monocytes # (Auto) 0.5 Thou/mm3 (0.0-0.8); Monocytes % (Auto) 9 % (0-12); Neutrophils # (Auto) 3.6 Thou/mm3 (1.8-7.7); Neutrophils % (Auto) 73 % (37-80); Nucleated Red Blood Cell # 0.00 Thou/mm3 (0.00-0.00); Nucleated Red Blood Cell % 0 /100 WBC (0); Platelet Count 229 Thou/mm3 (140-440); RDW Standard Deviation 45.7 fL (36.4-46.3); Red Blood Count 3.86 Miln/mm3 (4.00-5.20); White Blood Count 5.0 Thou/mm3 (3.6-11.0)
[2025-10-18 08:19] LABS: Alanine Aminotransferase 10 U/L (10-49); Albumin, Serum 4.4 gm/dL (3.4-4.8); Albumin/Globulin Ratio 2.1 (1.2-2.2); Alkaline Phosphatase 51 U/L (46-116); Anion Gap 7 (7-16); Aspartate Amino Transferase 24 U/L (0-34); BUN/Creatinine Ratio 24 Ratio (12-20); Bilirubin,Total 0.5 mg/dL (0.3-1.2); Blood Urea Nitrogen 17 mg/dL (9-23); Calcium 9.4 mg/dL (8.3-10.6); Calcium (Corrected) 9.4 mg/dL (8.5-10.1); Carbon Dioxide 29.9 mMol/L (20.0-31.0); Chloride 103 mMol/L (98-107); Creatinine (Component) 0.7 mg/dL (0.6-1.3); Globulin 2.1 gm/dL (2.3-3.5); Glucose 96 mg/dL (74-106); Osmolality,Calculated 280 (275-295); Potassium 4.3 mMol/L (3.4-5.1); Sodium 140 mMol/L (136-145); Total Protein 6.5 gm/dL (5.7-8.2); eGFR > 60 See Note
[2025-10-25 07:40] LABS: Basophils # (Auto) 0.0 Thou/mm3 (0.0-0.2); Basophils % (Auto) 1 % (0-2.5); Eosinophils # (Auto) 0.3 Thou/mm3 (0.0-0.5); Eosinophils % (Auto) 5 % (0-10); Hematocrit 36.0 % (36.0-46.0); Hemoglobin 12.0 g/dL (12.0-16.0); Immature Granulocytes Auto 0.03 Thou/mm3 (0.00-0.00); Lymphocytes # (Auto) 0.6 Thou/mm3 (1.0-4.8); Lymphocytes % (Auto) 11 % (10-50); Mean Corpuscular HGB Conc 33.3 g/dl (31.0-37.0); Mean Corpuscular Hemoglobin 32.4 pg (25.0-35.0); Mean Corpuscular Volume 97 fL (80-100); Monocytes # (Auto) 0.5 Thou/mm3 (0.0-0.8); Monocytes % (Auto) 9 % (0-12); Neutrophils # (Auto) 4.1 Thou/mm3 (1.8-7.7); Neutrophils % (Auto) 74 % (37-80); Nucleated Red Blood Cell # 0.00 Thou/mm3 (0.00-0.00); Nucleated Red Blood Cell % 0 /100 WBC (0); Platelet Count 230 Thou/mm3 (140-440); RDW Standard Deviation 46.8 fL (36.4-46.3); Red Blood Count 3.70 Miln/mm3 (4.00-5.20); White Blood Count 5.5 Thou/mm3 (3.6-11.0)
[2025-10-25 08:00] LABS: Alanine Aminotransferase 10 U/L (10-49); Albumin, Serum 4.3 gm/dL (3.4-4.8); Albumin/Globulin Ratio 2.2 (1.2-2.2); Alkaline Phosphatase 55 U/L (46-116); Anion Gap 8 (7-16); Aspartate Amino Transferase 24 U/L (0-34); BUN/Creatinine Ratio 19 Ratio (12-20); Bilirubin,Total 0.4 mg/dL (0.3-1.2); Blood Urea Nitrogen 13 mg/dL (9-23); Calcium 8.9 mg/dL (8.3-10.6); Calcium (Corrected) 8.9 mg/dL (8.5-10.1); Carbon Dioxide 27.8 mMol/L (20.0-31.0); Chloride 104 mMol/L (98-107); Creatinine (Component) 0.7 mg/dL (0.6-1.3); Globulin 2.0 gm/dL (2.3-3.5); Glucose 100 mg/dL (74-106); Osmolality,Calculated 279 (275-295); Potassium 4.6 mMol/L (3.4-5.1); Sodium 140 mMol/L (136-145); Total Protein 6.3 gm/dL (5.7-8.2); eGFR > 60 See Note
== END 2025-11-02 23:59 | disposition home or self-care (01) ==
LOC: SCTC 07:57
PROVIDERS: Internal Medicine Hematology & Oncology; PCP Family Medicine; Referring Provider Family Medicine; Visit Provider Radiology Therapeutic Radiology
DX: Z51.11 Encounter for antineoplastic chemotherapy (principal); C90.00 Multiple myeloma not having achieved remission; Z92.3 Personal history of irradiation; D64.9 Anemia, unspecified; M25.512 Pain in left shoulder
CPT/HCPCS: 36591; 80053; 82232; 82784; 83521; 84155; 84165; 85025; 86334; 96367; 96413; 99212; 99213; A4216; J1100; J1642; J3490; J7040; J7050; J9075; G0463